=== PATIENT | male | born 1965 | race Caucasian/White ===

== ENCOUNTER 2017-01-25 12:08 | Observation (INO) | payer BC, OTHER ==
--- NOTE | 2017-01-25 12:47 | PDOC ---
History of Present Illness - General Chief Complaint: CVA/TIA Stated Complaint: CHEST PAIN, NAUSEA Time Seen by Provider: 01/25/17 12:29 History Source: Patient, Family - History of Present Illness Timing/Duration: reports: 1-3 hours Associated Symptoms: reports: nausea/vomiting, vision changes. denies: loss of consciousness, numbness in legs/feet, slurred speech Past History - Past Medical History Allergies/Adverse Reactions: Allergies Allergy/AdvReac Type Severity Reaction Status Date / Time No Known Allergies Allergy Verified 01/25/17 12:17 Home Medications: Ambulatory Orders Atorvastatin Ca [Lipitor] 20 mg PO HS 01/25/17 Diclofenac Sodium 100 mg PO BID 01/25/17 Empagliflozin [Jardiance] 10 mg PO DAILY 01/25/17 Ibuprofen [Motrin -] 600 mg PO TID PRN 01/25/17 Icosapent Ethyl [Vascepa] 1 gm PO BID 01/25/17 Insulin Glargine/Lixisenatide [Soliqua 100 Unit-33 Mcg/ml Pen] 15 units SQ AC Lisinopril/Hydrochlorothiazide [Lisinopril-Hctz 10-12.5 mg Tab] 1 each PO DAILY 01/25/17 Meloxicam [Mobic] 15 mg PO DAILY 01/25/17 Sitagliptin Phos/Metformin HCl [Janumet Xr 50-1,000 mg Tablet] 1 each PO BID Asthma: Yes Diabetes: Yes HTN: Yes Hypercholesterolemia: Yes Kidney Stones: Yes - Immunization History Immunization Up to Date: Yes - Suicide/Smoking/Psychosocial Hx Smoking Status: No Smoking History: Never smoked Number of Cigarettes Smoked Daily: 0 Hx Alcohol Use: Yes (SOCIAL) Drug/Substance Use Hx: No Substance Use Type: None Review of Systems - Review of Systems Constitutional: No: Chills, Fever HEENTM: Yes: Blurred Vision Respiratory: No: Cough, Shortness of Breath Cardiac (ROS): No: Chest Pain Neurological: Yes: Numbness. No: Headache, Weakness, Dizziness *Physical Exam - Vital Signs Last Vital Signs Temp Pulse Resp BP Pulse Ox 98.0 F 96 H 18 166/97 97 01/25/17 12:01/25/17 12:01/25/17 12:01/25/17 12:01/25/17 12:09 - Physical Exam General Appearance: Yes: Appropriately Dressed, Severe Distress HEENT: positive: Normal Voice Neck: positive: Supple Respiratory/Chest: positive: Lungs Clear, Normal Breath Sounds. negative: Respiratory Distress Cardiovascular: positive: Regular Rate, S1, S2 Gastrointestinal/Abdominal: positive: Soft. negative: Tender Extremity: positive: Normal Inspection Integumentary: positive: Dry, Warm Neurologic: positive: Fully Oriented, Alert, Normal Mood/Affect, Motor Strength 5/5, Sensory Deficit (to L side of face compared to R), Finger to Nose, Other ( possible convergence insufficiency to L eye (L eye deviates laterally when both eyes are focusing on near finger), no nystagmus, no drift). negative: Facial Droop, Disoriented NIH Stroke Scale - Last Known Well Date/Time & Onset Date Last Known Well: 01/25/17 Time Last Known Well: 09:00 - Initial Evaluation Level of consciousness: Alert Ask patient the month and their age: Answers both correctly Ask patient to open & close eyes; make fist and let go: Obeys both correctly Best gaze (horizontal eye movement): Normal Visual field testing: No visual field loss Facial paresis (Show teeth/raise eyebrows/close eyes tight): Normal symmetrical movement Motor Function: Left Arm: Normal Motor Function: Right Arm: Normal (extends arm 90 (or 45) degrees for 10 seconds without drift Motor Function: Left Leg: Normal (extends leg 30 degrees for 5 seconds without drift) Motor Function: Right Leg: Normal (extends leg 30 degrees for 5 seconds without drift) Limb Ataxia: No ataxia Sensory(Use pinprick test arms,legs,trunk,face/side to side): Mild to moderate decrease in sensation (to L face) Best language (Describe picture, name items, read sentences): No Aphasia Dysarthria (read several words): Normal articulation Extinction and Inattention: No abnormality - Total Score NIH Stroke Scale Score: 1 tPA Exclusion checklist 3-4.5h - Time Elapsed Date last known well: 01/25/17 Time last known well: 09:00 Elaspsed time: Day(s) and 10 Hour(s) and 25 Minutes - Thrombolytic Therapy Candidate Is patient eligible for thrombolytic therapy: Yes - Exclusion Criteria 3-4.5 hr SBP greater than 185 or DBP greater than 110mmHg despite tx: No Recent IC/spinal surgery,head trauma or stroke<3mos.: No Hx IC hemorrhage, IC neoplasm, AV malformation or aneurysm: No Active internal bleeding: No Blding diathesis(low plt ct, inc PTT,INR>1.7 or use of NOAC): No Symptoms suggest subarachnoid hemorrhage: No CT demonstrates multilobar infarct(>1/3 cerebral hemiphere): No Arterial puncture at noncompressible site in previous 7 days: No Blood glucose concentration less than 50mg/dL (2.7mmol/L): No - Relative Exclusion Criteria 3-4.5 hr Life expectancy <1 yr or severe co-morbid illness: No : No Patient/family refused: No Rapid improvement: No Stroke severity too mild: No Recent acute VT (w/in previous 3 months): No Seizure at onset with postictal residual neuro impairments: No Major surgery or serious trauma w/in previous 14 days: No Recent GI or hemorrhage (w/in previous 21 days): No - Add'l Relative Exclusion 3-4.5 hr Age > 80: No Hx of both diabetes AND prior ischemic stroke: No Taking an oral anticoagulant regardless of INR: No NIHSS >25: No Critical Care Time/MDM Note - Medical Decision Making Note: 01/25/17 12:42 51-year-old male history of NIDDM, HTN, HLD, here with headache with dizziness, nausea, vomiting. Patient reports being in usual state of health until 9 AM today when he began experiencing lightheadedness with vague headache and multiple episodes of nausea, vomiting. At some point felt that left side of face was numb. States his vision might be blurry bilaterally, but is unsure. No focal weakness or slurred speech. No chest pain or shortness of breath See exam R/o Stroke Alert activated Last known normal >3 hrs ago Mildly hypertensive and actively vomiting in ED Neuro exam remarkable for decreased sensation to left side of face with possible convergence insufficiency to L eye -CTH -labs -IVF -antiemetic -neuro c/s 01/25/17 12:57 Radiology called, CT head unremarkable. Neuro c/s pending 01/25/17 13:[address] Mejia of neurology. States unlikely stroke given stroke scale but recommends triple MRI study and admit 01/25/17 13:04 01/25/17 16:21 Labs and MRI head and neck all unremarkable. Patient continues to appear very uncomfortable and is currently c/o of nausea and dizziness, unclear if vertigo. Source of symptoms unclear at this time, possibly complex migraines versus peripheral vertigo. Glucose 268 w/ ketones in ua but no gap and not acidotic on blood gas so unlikely DKA. Will continue to manage symptoms and give trial of meclizine and reassess. If no improvement, will consider admitting to obs 01/25/17 18:26 Patient continues to complain of dizziness and nausea despite multiple attempts to manage symptoms. Case d/w Dr Garza and pt admitted 01/25/17 19:25 01/25/17 19:25 Discharge Disposition - Diagnosis Dizziness Nausea & vomiting Qualifiers: Vomiting type: unspecified Vomiting Intractability: intractable Qualified Code( s): R11.2 - Nausea with vomiting, unspecified - Discharge Dispostion Condition at time of disposition: Fair Last Admission D/C Date: 09/15/11 Admit: Yes - Referrals Referrals: Don Evans MD [Primary Care Provider] -
[2017-01-25] MEDS ORDERED: SODIUM CHLORIDE 1,000 ML IV STA ×2 (12:52→16:20)
[2017-01-25] MEDS ORDERED: METOCLOPRAMIDE HCL INJECTION 10 MG/2 ML VIAL IVPB ONE (12:52)
[2017-01-25 12:53] LABS: BASOPHIL 0.5 % (0-2.0); EOSINOPHIL 0.5 % (0-4.5); MCH 30.7 pg (25.7-33.7); MCHC 33.9 g/dl (32.0-35.9); MEAN CELL VOLUME 90.5 fl (80-96); MEAN PLT VOLUME 7.9 fl (7.5-11.1); NEUTROPHILS 65.3 % (42.8-82.8); PLATELET COUNT 183 K/MM3 (134-434); RDW 13.1 % (11.9-15.9); WHITE BLOOD COUNT 8.6 K/mm3 (4.0-10.0)
[2017-01-25] MEDS ORDERED: METOCLOPRAMIDE HCL INJECTION 10 MG/2 ML VIAL ONE (12:57)
[2017-01-25 13:06] LABS: ANION GAP 13 (8-16); BILIRUBIN,TOTAL 0.6 mg/dL (0.2-1.0); CALCIUM 9.9 mg/dL (8.5-10.1); CO2 23 mmol/L (21-32); CREATININE 0.8 mg/dL (0.7-1.3); GLUCOSE,RANDOM 268 mg/dL (74-106); SGPT/ALT 88 U/L (12-78)
[2017-01-25 13:08] LABS: ALK PHOS 114 U/L (45-117); TROPONIN I 0.05 ng/ml (0.00-0.05)
[2017-01-25 13:09] LABS: CPK 190 IU/L (39-308); SGOT/AST 39 U/L (15-37)
[2017-01-25 13:20] LABS: INR 0.88 (0.82-1.09); PROTHROMBIN TIME (PATIENT) 9.7 SEC (9.98-11.88)
[2017-01-25 13:28] LABS: VENOUS BLOOD GAS HCO3 22.5 meq/L (19-25); VENOUS PH 7.44 (7.32-7.42)
[2017-01-25 15:30] LABS: URINE APPEARANCE CLEAR; URINE BILIRUBIN NEGATIVE (NEGATIVE); URINE BLOOD 2+ (NEGATIVE); URINE COLOR STRAW; URINE GLUCOSE (UA) 3+ (NEGATIVE); URINE KETONE 1+ (NEGATIVE); URINE LEUK ESTERASE NEGATIVE (NEGATIVE); URINE NITRITE NEGATIVE (NEGATIVE); URINE UROBILINOGEN NEGATIVE mg/dL (0.2-1.0)
[2017-01-25 15:41] LABS: URINE PROTEIN 2+ (NEGATIVE)
[2017-01-25 15:42] LABS: URINE RBC 3 /hpf (0-3); URINE WBC 1 /hpf (3-5)
[2017-01-25] MEDS ORDERED: ONDANSETRON 4 MG/2 ML VIAL IVPUSH ONE (16:20)
[2017-01-25] MEDS ORDERED: MECLIZINE HCL 25 MG TABLET (FP) PO ONE (16:20)
[2017-01-25] MEDS ORDERED: MECLIZINE HCL 25 MG TABLET (FP) ONE (16:30)
[2017-01-25] MEDS ORDERED: ONDANSETRON 4 MG/2 ML VIAL ONE (16:31)
[2017-01-25 17:57] LABS: URINE MARIJUANA THC NEGATIVE ng/ml (CUTOFF=50)
[2017-01-25] MEDS ORDERED: diazePAM CARPU-JECT 10 MG/2 ML DISP.SYRIN IVPUSH ONE (18:22)
[2017-01-25] MEDS ORDERED: diazePAM 5 MG TABLET PO ONE (18:31)
[2017-01-25] MEDS ORDERED: diazePAM 5 MG TABLET ONE (18:32)
[2017-01-25] MEDS ORDERED: ATORVASTATIN CA 40 MG TABLET (FP) ONE (22:09)
[2017-01-25] MEDS ORDERED: HEPARIN NA (PORCINE) 5,000 UNITS/ML 1ML VIAL ONE (22:09)
[2017-01-25] MEDS: HEPARIN NA (PORCINE) 5,000 UNITS/ML 1ML VIAL SQ SCH (22:27)
[2017-01-25] MEDS: ATORVASTATIN CA 20 MG TABLET (FP) PO SCH (22:28)
[2017-01-25 23:03] LABS: MCH 31.2 pg (25.7-33.7); MCHC 34.1 g/dl (32.0-35.9); MEAN CELL VOLUME 91.5 fl (80-96); MEAN PLT VOLUME 7.8 fl (7.5-11.1); PLATELET COUNT 159 K/MM3 (134-434); RDW 13.1 % (11.9-15.9); WHITE BLOOD COUNT 7.9 K/mm3 (4.0-10.0)
[2017-01-25 23:31] LABS: ALBUMIN 3.5 g/dl (3.4-5.0); ANION GAP 13 (8-16); BILIRUBIN,TOTAL 0.5 mg/dL (0.2-1.0); CALCIUM 8.6 mg/dL (8.5-10.1); CO2 23 mmol/L (21-32); CREATININE 0.8 mg/dL (0.7-1.3); GLUCOSE,RANDOM 186 mg/dL (74-106); SGOT/AST 37 U/L (15-37); SGPT/ALT 80 U/L (12-78)
[2017-01-25 23:33] LABS: ALK PHOS 87 U/L (45-117); CPK 106 IU/L (39-308); TROPONIN I 0.11 ng/ml (0.00-0.05)
[2017-01-26 07:22] LABS: BASOPHIL 0.3 % (0-2.0); EOSINOPHIL 0.5 % (0-4.5); MCH 31.1 pg (25.7-33.7); MCHC 33.8 g/dl (32.0-35.9); MEAN PLT VOLUME 7.7 fl (7.5-11.1); NEUTROPHILS 75.4 % (42.8-82.8); PLATELET COUNT 159 K/MM3 (134-434); RDW 13.1 % (11.9-15.9); WHITE BLOOD COUNT 7.3 K/mm3 (4.0-10.0)
[2017-01-26 07:57] LABS: ALBUMIN 3.4 g/dl (3.4-5.0); ANION GAP 10 (8-16); CALCIUM 8.6 mg/dL (8.5-10.1); CHOLESTEROL 179 mg/dL (50-200); CO2 24 mmol/L (21-32); GLUCOSE,RANDOM 136 mg/dL (74-106)
[2017-01-26 08:01] LABS: ALK PHOS 78 U/L (45-117); BILIRUBIN,TOTAL 0.6 mg/dL (0.2-1.0); CPK 81 IU/L (39-308); CREATININE 0.8 mg/dL (0.7-1.3); SGOT/AST 32 U/L (15-37); SGPT/ALT 76 U/L (12-78); TOT PROT 6.9 g/dl (6.4-8.2); TROPONIN I 0.07 ng/ml (0.00-0.05)
--- NOTE | 2017-01-26 08:51 | CON.NEURO ---
Consult - History of Present Illness History of Present Illness: 51-year-old male history of NIDDM, HTN, HLD, here with headache with dizziness, nausea, vomiting. Patient reports being in usual state of health until 9 AM on 01/25/17 when he began experiencing lightheadedness with vague headache and multiple episodes of nausea, vomiting. At some point felt that left side of face was numb. States his vision might be blurry bilaterally, but is unsure. No focal weakness or slurred speech. No chest pain or shortness of breath. Called neurology apx 1PM --was out of TPA window. CT HD (-). MRI BRAIN (-) no acute infarct. MRA NL. denies TIM now, feels numbness right leg, + dizziness - Alcohol/Substance Use Hx Alcohol Use: Yes (SOCIAL) - Smoking History Smoking history: Never smoked Aproximately how many cigarettes per day: 0 Home Medications - Allergies Allergies/Adverse Reactions: Allergies Allergy/AdvReac Type Severity Reaction Status Date / Time No Known Allergies Allergy Verified 01/25/17 12:17 - Home Medications Home Medications: Ambulatory Orders Atorvastatin Ca [Lipitor] 20 mg PO HS 01/25/17 Diclofenac Sodium 100 mg PO BID 01/25/17 Empagliflozin [Jardiance] 10 mg PO DAILY 01/25/17 Ibuprofen [Motrin -] 600 mg PO TID PRN 01/25/17 Icosapent Ethyl [Vascepa] 1 gm PO BID 01/25/17 Insulin Glargine/Lixisenatide [Soliqua 100 Unit-33 Mcg/ml Pen] 15 units SQ AC Lisinopril/Hydrochlorothiazide [Lisinopril-Hctz 10-12.5 mg Tab] 1 each PO DAILY 01/25/17 Meloxicam [Mobic] 15 mg PO DAILY 01/25/17 Sitagliptin Phos/Metformin HCl [Janumet Xr 50-1,000 mg Tablet] 1 each PO BID Physical Exam-Neuro Vital Signs: Vital Signs Temperature 97.9 F 01/26/17 07:03 Pulse Rate 78 01/26/17 07:03 Respiratory Rate 18 01/26/17 07:03 Blood Pressure 138/75 01/26/17 07:03 O2 Sat by Pulse Oximetry (%) 97 01/26/17 07:03 Constitutional: Yes: Well Nourished, No Distress Labs: CBC, BMP 01/26/17 06:20 01/26/17 06:20 INR, PTT INR 0.88 (0.82-1.09) 01/25/17 12:40 - Neuro Exam Level Of Consciousness: Yes: Alert, Oriented to Person (EOMI, no facial, VFF, motor 5/5, no drift, sesnory intact) NIH Stroke Scale - Last Known Well Date/Time & Onset Date Last Known Well: 01/25/17 - Initial Evaluation Level of consciousness: Alert Ask patient the month and their age: Answers both correctly Ask patient to open & close eyes; make fist and let go: Obeys both correctly Best gaze (horizontal eye movement): Normal Visual field testing: No visual field loss Facial paresis (Show teeth/raise eyebrows/close eyes tight): Normal symmetrical movement Motor Function: Left Arm: Normal Motor Function: Right Arm: Normal (extends arm 90 (or 45) degrees for 10 seconds without drift Motor Function: Left Leg: Normal (extends leg 30 degrees for 5 seconds without drift) Motor Function: Right Leg: Normal (extends leg 30 degrees for 5 seconds without drift) Limb Ataxia: No ataxia Sensory(Use pinprick test arms,legs,trunk,face/side to side): Normal Best language (Describe picture, name items, read sentences): No Aphasia Dysarthria (read several words): Normal articulation Extinction and Inattention: No abnormality - Total Score NIH Stroke Scale Score: 0 Imaging - Results Cat Scan: Report Reviewed, Image Reviewed MRI: Report Reviewed, Image Reviewed Problem List - Problems (1) Headache Code(s): R51 - HEADACHE (2) Vertigo Code(s): R42 - DIZZINESS AND GIDDINESS (3) Hypertension Code(s): I10 - ESSENTIAL (PRIMARY) HYPERTENSION Assessment/Plan 51-year-old male history of NIDDM, HTN, HLD, here with headache with dizziness, nausea, vomiting. Patient reports being in usual state of health until 9 AM on 01/25/17 when he began experiencing lightheadedness with vague headache and multiple episodes of nausea, vomiting. suspect bout of peripheral vertigo , BPV vs viral mediated vs Diabetic ; no contral findings on exam, doubt this was a TIA MRI MRA BRAIN (-), check DOPPLER BP control, meclizine, hydration needs DM control, a1c 10. 1 ASA ok for now Dr Mejia
[2017-01-26] MEDS: HEPARIN NA (PORCINE) 5,000 UNITS/ML 1ML VIAL SQ SCH ×2 (10:42→21:44)
--- NOTE | 2017-01-26 10:43 | EKG ---
Test Reason : Blood Pressure : / mmHG Vent. Rate : 084 BPM Atrial Rate : 084 BPM P-R Int : 140 ms QRS Dur : 096 ms QT Int : 390 ms P-R-T Axes : 043 042 020 degrees QTc Int : 460 ms NORMAL SINUS RHYTHM NORMAL ECG WHEN COMPARED WITH ECG OF 25-JAN-2017 12:17, T WAVE AMPLITUDE HAS INCREASED IN ANTERIOR LEADS Confirmed by ANDREIA RODRIGUES MD ([id number]) on 01/26/2017 10:43:04 AM Referred By: DAMIAN ALEXANDER Confirmed By:ANDREIA RODRIGUES MD
[2017-01-26] MEDS: ACETAMINOPHEN 325 MG TABLET (FP) PO PRN (11:23)
[2017-01-26] MEDS ORDERED: MECLIZINE HCL 25 MG TABLET (FP) PO PRN (13:32)
--- NOTE | 2017-01-26 13:33 | HP ---
Admitting History and Physical - Primary Care Physician PCP: Mario Garza - Admission Chief Complaint: diziness unsteady gait History of Present Illness: 51-year-old male history of NIDDM, HTN, HLD, here with headache with dizziness, nausea, vomiting. Patient reports being in usual state of health until 9 AM on 01/25/17 when he began experiencing lightheadedness with vague headache and multiple episodes of nausea, vomiting. At some point felt that left side of face was numb. States his vision might be blurry bilaterally, but is unsure. No focal weakness or slurred speech. No chest pain or shortness of breath. Called neurology apx 1PM --was out of TPA window. CT HD (-). MRI BRAIN (-) no acute infarct. MRA NL. per patient he was fine yesterday in morning then got bad headache and felt unsteady on his feet in ER he got CT scan , MRI and MRA which is all normal he stil is unsteady on his feet got meclizine echo normal History Source: Patient, Medical Record - Past Medical History Cardiovascular: Yes: HTN, Hyperlipdemia Endocrine: Yes: Diabetes Mellitus - Smoking History Smoking history: Never smoked Have you smoked in the past 12 months: No Aproximately how many cigarettes per day: 0 - Alcohol/Substance Use Hx Alcohol Use: Yes (SOCIAL) Home Medications - Allergies Allergies/Adverse Reactions: Allergies Allergy/AdvReac Type Severity Reaction Status Date / Time No Known Allergies Allergy Verified 01/25/17 12:17 - Home Medications Home Medications: Ambulatory Orders Atorvastatin Ca [Lipitor] 20 mg PO HS 01/25/17 Diclofenac Sodium 100 mg PO BID 01/25/17 Empagliflozin [Jardiance] 10 mg PO DAILY 01/25/17 Ibuprofen [Motrin -] 600 mg PO TID PRN 01/25/17 Icosapent Ethyl [Vascepa] 1 gm PO BID 01/25/17 Insulin Glargine/Lixisenatide [Soliqua 100 Unit-33 Mcg/ml Pen] 15 units SQ AC Lisinopril/Hydrochlorothiazide [Lisinopril-Hctz 10-12.5 mg Tab] 1 each PO DAILY 01/25/17 Meloxicam [Mobic] 15 mg PO DAILY 01/25/17 Sitagliptin Phos/Metformin HCl [Janumet Xr 50-1,000 mg Tablet] 1 each PO BID Review of Systems - Review of Systems Constitutional: reports: Other (dizziness and unsteady on his feet on his way to bathroom) Physical Examination Vital Signs: Vital Signs Temperature 97.8 F 01/26/17 13:32 Pulse Rate 92 H 01/26/17 13:32 Respiratory Rate 18 01/26/17 13:32 Blood Pressure 127/70 01/26/17 13:32 O2 Sat by Pulse Oximetry (%) 97 01/26/17 11:27 Constitutional: Yes: Calm Neck: Yes: Trachea Midline Cardiovascular: Yes: Regular Rate and Rhythm, S1, S2 Respiratory: Yes: CTA Bilaterally Gastrointestinal: Yes: Normal Bowel Sounds, Soft Edema: No Neurological: Yes: Alert, Oriented, Other (motor strength amd sensory intact) Labs: CBC, BMP 01/26/17 06:20 01/26/17 06:20 Imaging - Results Cat Scan: Report Reviewed MRI: Report Reviewed Problem List - Problems (1) Dizziness Assessment/Plan: cardio eval pending trial of meclizine PT neuro work up so far negative will get ENT to see patient as well possible middle ear eitology? april need STR dvt px Code(s): R42 - DIZZINESS AND GIDDINESS (2) Diabetes Assessment/Plan: endocrine eval Bgm monitiring hga1c 10- uncontrolled levemir 15 units hs hold metformin for 24 hrs given had contrast in MRI januvia 100mg daily Code(s): E11.9 - TYPE 2 DIABETES MELLITUS WITHOUT COMPLICATIONS Qualifiers: Diabetes mellitus type: type 2
[2017-01-26] MEDS ORDERED: ONDANSETRON 4 MG/2 ML VIAL IVPUSH PRN (14:09)
--- NOTE | 2017-01-26 15:44 | CON.CARD ---
Consult Consult Specialty:: Cardiology Referred by:: Dr. Garza Reason for Consultation:: Elevated troponin. - History of Present Illness Chief Complaint: Chest pain and headache. History of Present Illness: 51-year-old man with a PMHx of HTN, NIDDM, hyperlipidemia admitted 01/25/2017 with severe headache. The patient developed headache with dizziness, nausea, vomiting on the day of admission. Seen by Neurology, CT head, MRI and MRA were negative. His headache improved. The patient had episode of left sided chest pain with associated SOB on the day of admission which lasted for 20-30 minutes. He has no recurrent chest pain since admission. ECG showed anterior peak T waves. Troponin is mildly elevated: 0.05->0.11->0.07. Echocardiogram 01/26/2017 showed normal LV function without segmental wall motion abnormalities. 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) Cardio/Vascular: Yes: HTN, Hyperlipdemia Endocrine: Yes: Diabetes Mellitus - Alcohol/Substance Use Hx Alcohol Use: Yes (SOCIAL) - Smoking History Smoking history: Never smoked Have you smoked in the past 12 months: No Aproximately how many cigarettes per day: 0 Home Medications - Allergies Allergies/Adverse Reactions: Allergies Allergy/AdvReac Type Severity Reaction Status Date / Time No Known Allergies Allergy Verified 01/25/17 12:17 - Home Medications Home Medications: Ambulatory Orders Atorvastatin Ca [Lipitor] 20 mg PO HS 01/25/17 Diclofenac Sodium 100 mg PO BID 01/25/17 Empagliflozin [Jardiance] 10 mg PO DAILY 01/25/17 Ibuprofen [Motrin -] 600 mg PO TID PRN 01/25/17 Icosapent Ethyl [Vascepa] 1 gm PO BID 01/25/17 Insulin Glargine/Lixisenatide [Soliqua 100 Unit-33 Mcg/ml Pen] 15 units SQ AC Lisinopril/Hydrochlorothiazide [Lisinopril-Hctz 10-12.5 mg Tab] 1 each PO DAILY 01/25/17 Meloxicam [Mobic] 15 mg PO DAILY 01/25/17 Sitagliptin Phos/Metformin HCl [Janumet Xr 50-1,000 mg Tablet] 1 each PO BID Review of Systems - Review of Systems Constitutional: reports: No Symptoms Eyes: reports: Other HENT: reports: No Symptoms Neck: reports: No Symptoms Cardiovascular: reports: Chest Pain Respiratory: reports: SOB Gastrointestinal: reports: No Symptoms Genitourinary: reports: No Symptoms Breasts: reports: No Symptoms Reported Musculoskeletal: reports: No Symptoms Neurological: reports: Headache Vital Signs: Vital Signs Temperature 97.8 F 01/26/17 13:32 Pulse Rate 92 H 01/26/17 13:32 Respiratory Rate 18 01/26/17 13:32 Blood Pressure 127/70 01/26/17 13:32 O2 Sat by Pulse Oximetry (%) 97 01/26/17 11:27 Constitutional: Yes: Well Nourished, No Distress, Calm Eyes: Yes: Conjunctiva Clear, EOM Intact, PERRL HENT: Yes: Atraumatic, Normocephalic Neck: Yes: Supple, Trachea Midline Respiratory: Yes: Regular, CTA Bilaterally Gastrointestinal: Yes: Normal Bowel Sounds, Soft Cardiovascular: Yes: Regular Rate and Rhythm JVD: No Carotid Bruit: No Heart Sounds: Yes: S1, S2 Extremities: Yes: WNL Edema: No Peripheral Pulses WNL: Yes - Other Data Labs, Other Data: CBC, BMP 01/26/17 06:20 01/26/17 06:20 INR, PTT INR 0.88 (0.82-1.09) 01/25/17 12:40 Troponin, BNP 01/25/17 01/26/17 22:50 06:20 Troponin I 0.11 H D 0.07 H D Troponin, BNP 01/25/17 01/26/17 22:50 06:20 Troponin I 0.11 H D 0.07 H D Sinus rhythm, peak T waves anterior leads. Echo: Report Reviewed (Normal LV and RV.) Ejection Fraction %: LVEF > or = 40 % Assessment/Plan 51-year-old man with a PMHx of HTN, NIDDM, hyperlipidemia admitted 01/25/2017 with severe headache. Seen by Neurology, CT head, MRI and MRA were negative. His headache improved. He had an episode of left sided chest pain with associated SOB. ECG showed anterior peak T waves. Troponin is mildly elevated: 0.05->0.11->0.07. Echocardiogram 01/26/2017 showed normal LV function without segmental wall motion abnormalities. Chest pain with mildly elevated troponin. He has been stable without recurrent chest pain. The pattern of troponin elevated dose not suggest acute coronary syndrome. But he has multiple risk factors of CAD. Therefore, Persantine nulcear stress test recommended for risk stratification. Start aspirin 81 mg daily and Metoprolol succinate 25 mg daily. Continue atorvastatin.
[2017-01-26] MEDS ORDERED: INSULIN (NOVOLOG) ASPART 100 UNITS/ML 10ML VIAL ONE ×2 (16:33→18:41)
[2017-01-26] MEDS ORDERED: PT OWN MED DRAWER 7, Y5N ONE (16:33)
[2017-01-26] MEDS: METOPROLOL SUCCINATE 25 MG TAB.SR.24H (FP) PO SCH (16:40)
[2017-01-26] MEDS: INSULIN SLIDING SCALE (NOVOLOG) 1 VIAL SQ SCH ×2 (16:40→21:46)
[2017-01-26] MEDS: ATORVASTATIN CA 20 MG TABLET (FP) PO SCH (21:44)
[2017-01-26] MEDS ORDERED: INSULIN DETEMIR 100 UNITS/ML MDV SQ SCH (22:00)
[2017-01-27] MEDS: INSULIN SLIDING SCALE (NOVOLOG) 1 VIAL SQ SCH ×3 (06:23→16:52)
--- NOTE | 2017-01-27 08:26 | CONSULT ---
Consult Consult Specialty:: endocrine Referred by:: dr.saba perkins Reason for Consultation:: diabetes mellitus - History of Present Illness Chief Complaint: high blood sugar numbness face and hand History of Present Illness: 51-year-old male history of NIDDM, HTN, HLD, here with headache with dizziness, nausea, vomiting. Patient reports being in usual state of health until 9 AM on 01/25/17 when he began experiencing lightheadedness with vague headache and multiple episodes of nausea, vomiting. 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) Cardio/Vascular: Yes: HTN, Hyperlipdemia Endocrine: Yes: Diabetes Mellitus - Alcohol/Substance Use Hx Alcohol Use: Yes (SOCIAL) - Smoking History Smoking history: Never smoked Have you smoked in the past 12 months: No Aproximately how many cigarettes per day: 0 Home Medications - Allergies Allergies/Adverse Reactions: Allergies Allergy/AdvReac Type Severity Reaction Status Date / Time No Known Allergies Allergy Verified 01/25/17 12:17 - Home Medications Home Medications: Ambulatory Orders Atorvastatin Ca [Lipitor] 20 mg PO HS 01/25/17 Diclofenac Sodium 100 mg PO BID 01/25/17 Empagliflozin [Jardiance] 10 mg PO DAILY 01/25/17 Ibuprofen [Motrin -] 600 mg PO TID PRN 01/25/17 Icosapent Ethyl [Vascepa] 1 gm PO BID 01/25/17 Insulin Glargine/Lixisenatide [Soliqua 100 Unit-33 Mcg/ml Pen] 15 units SQ AC Lisinopril/Hydrochlorothiazide [Lisinopril-Hctz 10-12.5 mg Tab] 1 each PO DAILY 01/25/17 Meloxicam [Mobic] 15 mg PO DAILY 01/25/17 Sitagliptin Phos/Metformin HCl [Janumet Xr 50-1,000 mg Tablet] 1 each PO BID Review of Systems - Review of Systems Constitutional: reports: Lethargy, Loss of Appetite, Weakness Eyes: reports: Blurred Vision HENT: reports: No Symptoms Neck: reports: No Symptoms Cardiovascular: reports: Shortness of Breath Respiratory: reports: Exercise Intolerance, SOB on Exertion Gastrointestinal: reports: Constipation Genitourinary: reports: No Symptoms Musculoskeletal: reports: Extremity Pain, Muscle Pain, Muscle Cramps Neurological: reports: Numbness, Unsteady Gait, Weakness Endocrine: reports: Unexplained Weight Gain Physical Exam Vital Signs: Vital Signs Temperature 98.4 F 01/27/17 06:00 Pulse Rate 73 01/27/17 06:00 Respiratory Rate 20 01/27/17 06:00 Blood Pressure 136/88 01/27/17 06:00 O2 Sat by Pulse Oximetry (%) 97 01/26/17 20:20 Constitutional: Yes: Anxious Eyes: Yes: EOM Intact HENT: Yes: Normocephalic Neck: Yes: Trachea Midline Cardiovascular: Yes: Regular Rate and Rhythm Respiratory: Yes: CTA Bilaterally Gastrointestinal: Yes: Normal Bowel Sounds ...Rectal Exam: Yes: Deferred Renal/: Yes: WNL Breast(s): Yes: WNL Musculoskeletal: Yes: Muscle Pain, Muscle Weakness Edema: No Neurological: Yes: Alert, Oriented, Numbness, Weakness Psychiatric: Yes: Alert Labs: CBC, BMP 01/26/17 06:20 01/26/17 06:20 Problem List - Problems (1) Type 2 diabetes mellitus with diabetic neuropathic arthropathy Code(s): E11.610 - TYPE 2 DIABETES MELLITUS W DIABETIC NEUROPATHIC ARTHROPATHY Qualifiers: Diabetes mellitus group home insulin use: with manager long term care use Qualified Code(s): E11.618 - Type 2 diabetes mellitus with other diabetic arthropathy; Z79.4 - manager long term care (current) use of insulin Assessment/Plan Current Active Problems Diabetes (Acute) Dizziness (Acute) Hypertension (Acute) Nausea & vomiting (Acute) Vertigo (Acute) diabetes neuropathy hyperlipidemia chest pain /angina Laboratory Results - last 24 hr 01/25/17 12:37 POC Glucometer [id number] Laboratory Tests 01/26/17 01/26/17 01/26/17 06:20 06:20 06:20 WBC 7.3 Hgb 15.0 Hct 44.5 MCV 92.0 MCH 31.1 MCHC 33.8 RDW 13.1 Plt Count 159 MPV 7.7 Sodium 140 Potassium 4.0 Chloride 106 Carbon Dioxide 24 Anion Gap 10 BUN 22 H Creatinine 0.8 Creat Clearance w eGFR > 60 Hemoglobin A1c % 10.1 H D Triglycerides 180 H D Cholesterol 179 D Total LDL Cholesterol 90 D HDL Cholesterol 62 H D plan: bgm qid novolog scale doses levemir 15 units am daily lipitor 20 mg daily ecotrin 81 mg daily
[2017-01-27] MEDS ORDERED: DIPYRIDAMOLE STRESS TEST 50 MG in DEXTROSE 5%-WATER - 40 ML IVPB ONE (10:00)
[2017-01-27] MEDS ORDERED: ASPIRIN COATED 81 MG TABLET.EC PO SCH (10:00)
[2017-01-27] MEDS: HEPARIN NA (PORCINE) 5,000 UNITS/ML 1ML VIAL SQ SCH (12:03)
[2017-01-27] MEDS: METOPROLOL SUCCINATE 25 MG TAB.SR.24H (FP) PO SCH (12:03)
[2017-01-27] MEDS ORDERED: HEMOQUE TEST 1 EACH EACH ONE (12:08)
[2017-01-27] MEDS: ACETAMINOPHEN 325 MG TABLET (FP) PO PRN ×2 (12:11→17:10)
--- NOTE | 2017-01-27 13:02 | PN ---
Progress Note, Physician Chief Complaint: patient seen and examined today he feels better double vision has resolved and less dizzy while in bed however he has not ambulated PT to see him for gait - Current Medication List Current Medications: Active Medications Acetaminophen (Tylenol -) 650 mg PO Q4H PRN PRN Reason: FEVER OR PAIN Last Admin: 01/27/17 12:11 Dose: 650 mg Aspirin (Ecotrin -) 81 mg PO DAILY [facility] Last Admin: 01/27/17 12:03 Dose: 81 mg Atorvastatin Calcium (Lipitor -) 20 mg PO HS [facility] Last Admin: 01/26/17 21:44 Dose: 20 mg Heparin Sodium (Porcine) (Heparin -) 5,000 unit SQ BID [facility] Last Admin: 01/27/17 12:03 Dose: 5,000 unit Insulin Aspart (Novolog Vial Sliding Scale -) 1 vial SQ ACHS [facility] PRN Reason: Protocol Last Admin: 01/27/17 12:12 Dose: 2 unit Insulin Detemir (Levemir Vial) 15 units SQ AM MARTI Meclizine HCl (Antivert -) 25 mg PO BID PRN PRN Reason: VERTIGO Last Admin: 01/26/17 16:41 Dose: 25 mg Metoprolol Succinate (Toprol Xl -) 25 mg PO DAILY [facility] Last Admin: 01/27/17 12:03 Dose: 25 mg Ondansetron HCl (Zofran Injection) 4 mg IVPUSH Q6H PRN PRN Reason: NAUSEA AND/OR VOMITING - Objective Vital Signs: Vital Signs Temperature 98.4 F 01/27/17 06:00 Pulse Rate 73 01/27/17 06:00 Respiratory Rate 20 01/27/17 06:00 Blood Pressure 136/88 01/27/17 06:00 O2 Sat by Pulse Oximetry (%) 97 01/26/17 20:20 Constitutional: Yes: Calm Neck: Yes: Trachea Midline Cardiovascular: Yes: Regular Rate and Rhythm, S1, S2 Respiratory: Yes: CTA Bilaterally Gastrointestinal: Yes: Normal Bowel Sounds, Soft Edema: No Neurological: Yes: Alert, Oriented Labs: INR, PTT INR 0.88 (0.82-1.09) 01/25/17 12:40 Problem List - Problems (1) Dizziness Assessment/Plan: trial of meclizine PT eval pending neuro work up so far negative Code(s): R42 - DIZZINESS AND GIDDINESS (2) Diabetes Assessment/Plan: endocrine eval noted Bgm monitiring hga1c 10- uncontrolled levemir 15 units hs hold metformin for 24 hrs given had contrast in MRI januvia 100mg daily Code(s): E11.9 - TYPE 2 DIABETES MELLITUS WITHOUT COMPLICATIONS Qualifiers: Diabetes mellitus type: type 2 (3) Elevated troponin Assessment/Plan: stress test done today report pending on asa,statin and BB Code(s): R74.8 - ABNORMAL LEVELS OF OTHER SERUM ENZYMES Assessment/Plan PT eval to determine gait stability to decide if patient can go home vs str stress test report pending
--- NOTE | 2017-01-27 14:45 | PN ---
Progress Note, Physician Chief Complaint: Patient appears comfortable. Headache improved. No recurrent chest pain. Tele shows sinus rhythm without arrhythmia. History of Present Illness: 51-year-old man with a PMHx of HTN, NIDDM, hyperlipidemia admitted 01/25/2017 with severe headache. He had one episode of left sided chest pain with associated SOB on the day of admission which lasted for 20-30 minutes. ECG showed anterior peak T waves. Troponin is mildly elevated: 0.05->0.11->0.07. Echocardiogram 01/26/2017 showed normal LV function without segmental wall motion abnormalities. Persantine nuclear stress test today showed large and severe stress induced ischemia in the inferolateral and inferoseptal wall. Small and mild stress induced ischemia in the apex. Inferolateral hypokinesis with preserved LV systolic function. LVEF = 55%. Patient will be transferred to [facility] for cardiac cath. - Current Medication List Current Medications: Active Medications Acetaminophen (Tylenol -) 650 mg PO Q4H PRN PRN Reason: FEVER OR PAIN Last Admin: 01/27/17 12:11 Dose: 650 mg Aspirin (Ecotrin -) 81 mg PO DAILY ON LICENSE OF [facility] Last Admin: 01/27/17 12:03 Dose: 81 mg Atorvastatin Calcium (Lipitor -) 20 mg PO HS ON LICENSE OF [facility] Last Admin: 01/26/17 21:44 Dose: 20 mg Heparin Sodium (Porcine) (Heparin -) 5,000 unit SQ BID ON [facility] OF [facility] Last Admin: 01/27/17 12:03 Dose: 5,000 unit Insulin Aspart (Novolog Vial Sliding Scale -) 1 vial SQ ACHS ON LICENSE OF [facility] PRN Reason: Protocol Last Admin: 01/27/17 12:12 Dose: 2 unit Insulin Detemir (Levemir Vial) 15 units SQ AM ON LICENSE OF [facility] Meclizine HCl (Antivert -) 25 mg PO BID PRN PRN Reason: VERTIGO Last Admin: 01/26/17 16:41 Dose: 25 mg Metoprolol Succinate (Toprol Xl -) 25 mg PO DAILY ON LICENSE OF [facility] Last Admin: 01/27/17 12:03 Dose: 25 mg Ondansetron HCl (Zofran Injection) 4 mg IVPUSH Q6H PRN PRN Reason: NAUSEA AND/OR VOMITING - Objective Vital Signs: Vital Signs Temperature 98 F 01/27/17 10:00 Pulse Rate 78 01/27/17 14:00 Respiratory Rate 20 01/27/17 14:00 Blood Pressure 160/91 01/27/17 14:00 O2 Sat by Pulse Oximetry (%) 97 01/26/17 20:20 Constitutional: Yes: Well Nourished, No Distress, Calm Eyes: Yes: Conjunctiva Clear, EOM Intact HENT: Yes: WNL, Atraumatic, Normocephalic Neck: Yes: Supple, Trachea Midline Cardiovascular: Yes: Regular Rate and Rhythm Respiratory: Yes: Regular, CTA Bilaterally Gastrointestinal: Yes: WNL, Normal Bowel Sounds, Soft ...Rectal Exam: Yes: Deferred Extremities: Yes: WNL Edema: No Peripheral Pulses WNL: Yes Integumentary: Yes: WNL Neurological: Yes: WNL, Alert, Oriented Labs: INR, PTT INR 0.88 (0.82-1.09) 01/25/17 12:40 Assessment/Plan 51-year-old man with a PMHx of HTN, NIDDM, hyperlipidemia admitted 01/25/2017 with severe headache. Seen by Neurology, CT head, MRI and MRA were negative. His headache improved. He had an episode of left sided chest pain with associated SOB. ECG showed anterior peak T waves. Troponin is mildly elevated: 0.05->0.11->0.07. Echocardiogram 01/26/2017 showed normal LV function without segmental wall motion abnormalities. Persantine nuclear stress test today showed large and severe stress induced ischemia in the inferolateral and inferoseptal wall. Small and mild stress induced ischemia in the apex. Inferolateral hypokinesis with preserved LV systolic function. LVEF = 55%. Patient will be transferred to [facility] for cardiac cath. Continue aspirin 81 mg daily and atorvastatin. Increase Metoprolol succinate to 50 mg daily for BP and HR control. Will start Lovenox in case of recurrent chest pain.
--- NOTE | 2017-01-27 16:20 | DS ---
Physical Examination Vital Signs: Vital Signs Temperature 97.5 F L 01/27/17 14:40 Pulse Rate 84 01/27/17 14:40 Respiratory Rate 26 H 01/27/17 14:40 Blood Pressure 160/91 01/27/17 14:40 O2 Sat by Pulse Oximetry (%) 97 01/26/17 20:20 Constitutional: Yes: Calm Neck: Yes: Trachea Midline Cardiovascular: Yes: Regular Rate and Rhythm, S1, S2 Respiratory: Yes: CTA Bilaterally Gastrointestinal: Yes: Normal Bowel Sounds, Soft Edema: No Psychiatric: Yes: Alert, Oriented Discharge Summary Reason For Visit: DIZZINESS,NAUSEA,VOMITING Current Active Problems Diabetes (Acute) Dizziness (Acute) Elevated troponin (Acute) Hypertension (Acute) Nausea & vomiting (Acute) Type 2 diabetes mellitus with diabetic neuropathic arthropathy (Acute) Vertigo (Acute) Hospital Course: 51-year-old man with a PMHx of HTN, NIDDM, hyperlipidemia admitted 01/25/2017 with severe headache. He had one episode of left sided chest pain with associated SOB on the day of admission which lasted for 20-30 minutes. ECG showed anterior peak T waves. Troponin is mildly elevated: 0.05->0.11->0.07. Echocardiogram 01/26/2017 showed normal LV function without segmental wall motion abnormalities. Persantine nuclear stress test today showed large and severe stress induced ischemia in the inferolateral and inferoseptal wall. Small and mild stress induced ischemia in the apex. Inferolateral hypokinesis with preserved LV systolic function. LVEF = 55%. dizziness : MRI/MRA brain negative, Patient will be transferred to [facility] for cardiac cath. Condition: Fair - Instructions Referrals: Don Evans MD [Primary Care Provider] - Disposition: TRANSFER ACUTE CARE/OTHER HOSP - Home Medications Comprehensive Discharge Medication List: Ambulatory Orders Atorvastatin Ca [Lipitor] 20 mg PO HS 01/25/17 Empagliflozin [Jardiance] 10 mg PO DAILY 01/25/17 Icosapent Ethyl [Vascepa] 1 gm PO BID 01/25/17 Insulin Glargine/Lixisenatide [[place] 100 Unit-33 Mcg/ml Pen] 15 units SQ AC Sitagliptin Phos/Metformin HCl [Janumet Xr 50-1,000 mg Tablet] 1 each PO BID Aspirin Coated [Ecotrin -] 81 mg PO DAILY #30 tab MDD 1 01/27/17 Meclizine HCl [Antivert -] 25 mg PO BID PRN #7 tablet MDD 2 01/27/17 Metoprolol Succinate [Toprol XL -] 25 mg PO DAILY #30 tab MDD 1 01/27/17
[2017-01-27 17:24] VITALS: BP 155/77; PULSE 77; TEMP 98.2
[2017-01-28] MEDS ORDERED: INSULIN DETEMIR 100 UNITS/ML MDV SQ SCH (07:00)
--- NOTE | 2017-01-28 13:02 | EKG ---
Test Reason : Blood Pressure : / mmHG Vent. Rate : 077 BPM Atrial Rate : 077 BPM P-R Int : 132 ms QRS Dur : 096 ms QT Int : 390 ms P-R-T Axes : 031 036 022 degrees QTc Int : 441 ms NORMAL SINUS RHYTHM NORMAL ECG WHEN COMPARED WITH ECG OF 26-JAN-2017 08:52, NO SIGNIFICANT CHANGE WAS FOUND Confirmed by SOLANGE VIERA MD ([id number]) on 01/28/2017 1:02:05 PM Referred By: Confirmed By:SOLANGE VIERA MD
--- NOTE | 2017-02-02 14:19 | EKG ---
Test Reason : Blood Pressure : / mmHG Vent. Rate : 093 BPM Atrial Rate : 093 BPM P-R Int : 136 ms QRS Dur : 096 ms QT Int : 354 ms P-R-T Axes : 045 044 018 degrees QTc Int : 440 ms NORMAL SINUS RHYTHM NORMAL ECG WHEN COMPARED WITH ECG OF 18-MAY-2014 14:14, NO SIGNIFICANT CHANGE WAS FOUND Confirmed by ANDREIA RODRIGUES MD ([id number]) on 02/02/2017 2:19:07 PM Referred By: Confirmed By:ANDREIA RODRIGUES MD
== END 2017-01-27 17:40 | disposition short-term general hospital (02) ==
LOC: JER 12:08 → UNDOADMOB 18:59 → JERBED 18:59 → INTOOBSV 21:32 → OBSVTOIN 21:32 → JERBED 01-26 09:12 → J2W 01-26 09:12 → JERBED 01-27 12:22
PROVIDERS: ADMIT Family Medicine; ATTEND Family Medicine
PROC: 3E033GC Introduction of Other Therapeutic Substance into Peripheral Vein, Percutaneous Approach (ICD-10-PCS; principal; 2017-01-27)
PROC: 3E0337Z Introduction of Electrolytic and Water Balance Substance into Peripheral Vein, Percutaneous Approach (ICD-10-PCS; 2017-01-27)
PROC: 3E013VG Introduction of Insulin into Subcutaneous Tissue, Percutaneous Approach (ICD-10-PCS; 2017-01-27)
PROC: 3E013GC Introduction of Other Therapeutic Substance into Subcutaneous Tissue, Percutaneous Approach (ICD-10-PCS; 2017-01-27)
DX: R42 Dizziness and giddiness (principal); R11.2 Nausea with vomiting, unspecified; I10 Essential (primary) hypertension; E11.618 Type 2 diabetes mellitus with other diabetic arthropathy; E78.5 Hyperlipidemia, unspecified; R51 Headache; Z79.4 Long term (current) use of insulin; Z79.84 Long term (current) use of oral hypoglycemic drugs; R77.8 Other specified abnormalities of plasma proteins; R07.9 Chest pain, unspecified; R06.02 Shortness of breath
CPT/HCPCS: 36415; 70450-TC; 70544-TC; 70547-TC; 70551-TC; 78452-TC; 80053; 80061; 80307; 81003; 81015; 82009; 82553; 82803; 83036; 83721; 84484; 85025; 85027; 85610; 86850; 86900; 86901; 93005; 93010; 93017; 93306-TC; 97116-GP; 97162-GP; 99285-25; A9502; G0378; J1644

== ENCOUNTER 2017-03-12 14:55 | Emergency (ER) | payer BC ==
[2017-03-12 15:05] VITALS: BMI 33.5
[2017-03-12] MEDS ORDERED: SODIUM CHLORIDE 1,000 ML IV STA (15:56)
[2017-03-12] MEDS ORDERED: ACETAMINOPHEN 1000 MG/100 ML VIAL (NON FORMULARY) IVPB ONE (15:56)
[2017-03-12] MEDS ORDERED: ONDANSETRON 4 MG/2 ML VIAL IVPUSH PRN (15:56)
[2017-03-12] MEDS ORDERED: ONDANSETRON 4 MG/2 ML VIAL IVPUSH ONE (15:58)
[2017-03-12] MEDS ORDERED: ACETAMINOPHEN INJECTION 100 ML IVPB ONE (15:59)
--- NOTE | 2017-03-12 16:17 | PDOC ---
History of Present Illness - General Chief Complaint: Headache Stated Complaint: MIGRAINE, HX STROKE/WA 02/24/17 Time Seen by Provider: 03/12/17 15:10 History Source: Patient Exam Limitations: No Limitations - History of Present Illness Initial Comments: 03/12/17 15:36 51-year-old male brought in by son for evaluation of continual posterior headache since yesterday without visual changes but complaining of photosensitivity and nausea. Patient denies visual changes, fever, chills, recent head injury, dizziness, chest pain, shortness of breath, or neck pain. Patient states history of mild CVA and small aneurysm. Patient states normally does not have headaches to this extent and did not take anything for the above. Patient denies any lower extremity weakness or paresthesia, or numbness Timing/Duration: reports: 24 hours Severity: Yes: moderate Associated Symptoms: reports: nausea/vomiting Past History - Travel Traveled outside of the country in the last 30 days: No - Past Medical History Allergies/Adverse Reactions: Allergies Allergy/AdvReac Type Severity Reaction Status Date / Time No Known Allergies Allergy Verified 03/12/17 15:05 Home Medications: Ambulatory Orders Atorvastatin Ca [Lipitor] 20 mg PO HS 01/25/17 Empagliflozin [Jardiance] 10 mg PO DAILY 01/25/17 Icosapent Ethyl [Vascepa] 1 gm PO BID 01/25/17 Insulin Glargine/Lixisenatide [[place] 100 Unit-33 Mcg/ml Pen] 15 units SQ AC Sitagliptin Phos/Metformin HCl [Janumet Xr 50-1,000 mg Tablet] 1 each PO BID Aspirin Coated [Ecotrin -] 81 mg PO DAILY #30 tab MDD 1 01/27/17 Meclizine HCl [Antivert -] 25 mg PO BID PRN #7 tablet MDD 2 01/27/17 Metoprolol Succinate [Toprol XL -] 25 mg PO DAILY #30 tab MDD 1 01/27/17 Asthma: Yes Cancer: No Cardiac Disorders: No CVA: Yes COPD: No CHF: No Dementia: No Diabetes: Yes GI Disorders: No Disorders: No HTN: Yes Hypercholesterolemia: Yes Kidney Stones: Yes Liver Disease: No Seizures: No Thyroid Disease: No - Surgical History Abdominal Surgery: No Appendectomy: No Cardiac Surgery: No Cholecystectomy: No Lung Surgery: No Neurologic Surgery: No Orthopedic Surgery: No - Immunization History Immunization Up to Date: Yes - Suicide/Smoking/Psychosocial Hx Smoking Status: No Smoking History: Never smoked Have you smoked in the past 12 months: No Number of Cigarettes Smoked Daily: 0 Hx Alcohol Use: No Drug/Substance Use Hx: No Substance Use Type: None Hx Substance Use Treatment: No Patient Lives Alone: No Lives with/in: spouse/SO Neuro Specific PMHX - Complaint Specific PMHX Migraine: No Review of Systems - Review of Systems Able to Perform ROS?: Yes Constitutional: No: Symptoms Reported HEENTM: No: Symptoms Reported Respiratory: No: Symptoms reported Cardiac (ROS): No: Symptoms Reported ABD/GI: Yes: Nausea : No: Symptoms Reported Musculoskeletal: No: Symptoms Reported Integumentary: No: Symptoms Reported Neurological: Yes: Headache (generalized occipital throbbing) Hematologic/Lymphatic: No: Symptoms Reported *Physical Exam - Vital Signs Last Vital Signs Temp Pulse Resp BP Pulse Ox 98.2 F 107 H 20 140/89 98 03/12/17 15:46 03/12/17 15:46 03/12/17 15:46 03/12/17 15:46 03/12/17 15:46 - Physical Exam General Appearance: Yes: Nourished, Appropriately Dressed. No: Apparent Distress HEENT: positive: EOMI, JOSE (2 mm mary beth) Neck: positive: Normal Thyroid, Supple. negative: Tender, Decreased range of motion Respiratory/Chest: positive: Lungs Clear, Normal Breath Sounds. negative: Respiratory Distress, Accessory Muscle Use Cardiovascular: positive: Regular Rhythm, Regular Rate. negative: Murmur Gastrointestinal/Abdominal: positive: Soft. negative: Tenderness Integumentary: positive: Normal Color, Warm, Moist Neurologic: positive: Normal Mood/Affect, Motor Strength 5/5 (ambulatory with cane). negative: Facial Droop, Sensory Deficit ED Treatment Course - LABORATORY CBC & Chemistry Diagram: 03/12/17 15:40 03/12/17 15:40 - RADIOLOGY Radiology Studies Ordered: Category Date Time Status BRAIN CTA [CT] Stat CT Scan 03/12/17 15:37 Ordered Medical Decision Making - Medical Decision Making 03/12/17 15:39 Patient with complaints of headache since yesterday associated with photosensitivity and mild nausea. Patient exam had no neural focal deficits or acute findings. Patient does have history of hypertension, dyslipidemia, CVA, and aneurysm. Patient ordered for labs, IV fluids, IV Tylenol, CT of the brain, and Zofran. 03/12/17 17:06 Laboratory Tests 03/12/17 03/12/17 03/12/17 15:40 15:40 15:40 WBC 6.0 Hgb 14.0 Hct 40.4 MCV 88.8 Plt Count 156 PT with INR 11.60 Sodium 142 Potassium 4.7 Chloride 106 Carbon Dioxide 28 Anion Gap 8 BUN 19 H Creatinine 1.0 D Creat Clearance w eGFR > 60 Random Glucose 153 H Calcium 8.9 AST 18 D ALT 46 D Albumin 3.4 Urine Ketones Urine Nitrite Ur Leukocyte Esterase Urine RBC (Auto) 03/12/17 15:40 WBC Hgb Hct MCV Plt Count PT with INR Sodium Potassium Chloride Carbon Dioxide Anion Gap BUN Creatinine Creat Clearance w eGFR Random Glucose Calcium AST ALT Albumin Urine Ketones Negative Urine Nitrite Negative Ur Leukocyte Esterase Pending Urine RBC (Auto) 22 Patient states feeling much better after receiving medication. Patient currently awaiting CTA of the brain. 03/12/17 18:31 Patient states feeling much better and eating a dinner tray. CTA results still pending *DC/Admit/Observation/Transfer Diagnosis at time of Disposition: Headache - Discharge Dispostion Disposition: HOME Condition at time of disposition: Stable - Referrals Referrals: Don Evans MD [Primary Care Provider] - - Patient Instructions Printed Discharge Instructions: DI for Headache Additional Instructions: As discussed, please follow up with Dr. Evans by the end of this week for further evaluation. If you develop any fever, chills, vomiting, diarrhea, worsening pr "thunderclap" headache, weakness, slurred speech, change in vision , or any new or other concerning symptoms, please return to the ER immediately. - Post Discharge Activity
[2017-03-12 16:30] LABS: BASOPHIL 0.3 % (0-2.0); EOSINOPHIL 1.4 % (0-4.5); MCH 30.8 pg (25.7-33.7); MCHC 34.7 g/dl (32.0-35.9); MEAN CELL VOLUME 88.8 fl (80-96); MEAN PLT VOLUME 7.7 fl (7.5-11.1); NEUTROPHILS 59.6 % (42.8-82.8); PLATELET COUNT 156 K/MM3 (134-434); RDW 12.9 % (11.9-15.9)
[2017-03-12 16:32] LABS: URINE APPEARANCE SLCLOUDY; URINE BILIRUBIN NEGATIVE (NEGATIVE); URINE BLOOD NEGATIVE (NEGATIVE); URINE COLOR YELLOW; URINE GLUCOSE (UA) 2+ (NEGATIVE); URINE KETONE NEGATIVE (NEGATIVE); URINE NITRITE NEGATIVE (NEGATIVE); URINE UROBILINOGEN NEGATIVE mg/dL (0.2-1.0)
[2017-03-12 16:35] LABS: URINE PROTEIN 3+ (NEGATIVE)
[2017-03-12 16:37] LABS: URINE HYALINE CAST 2 /lpf; URINE MUCUS RARE; URINE RBC 22; URINE WBC 1
[2017-03-12 16:40] LABS: INR 1.03 (0.82-1.09); PROTHROMBIN TIME (PATIENT) 11.6 SEC (9.98-11.88)
[2017-03-12 16:54] LABS: ALBUMIN 3.4 g/dl (3.4-5.0); ANION GAP 8 (8-16); CALCIUM 8.9 mg/dL (8.5-10.1); CO2 28 mmol/L (21-32); GLUCOSE,RANDOM 153 mg/dL (74-106)
[2017-03-12 16:57] LABS: ALK PHOS 99 U/L (45-117); BILIRUBIN,TOTAL 0.4 mg/dL (0.2-1.0); SGOT/AST 18 U/L (15-37); SGPT/ALT 46 U/L (12-78); TOT PROT 6.9 g/dl (6.4-8.2)
[2017-03-12] MEDS ORDERED: METOCLOPRAMIDE HCL INJECTION 10 MG/2 ML VIAL IVPB ONE (19:44)
[2017-03-12] MEDS ORDERED: KETOROLAC TROMETHAMINE 30 MG/1 ML VIAL IVPUSH ONE (19:44)
--- NOTE | 2017-03-12 20:03 | PDOC ---
*Physical Exam - Vital Signs Last Vital Signs Temp Pulse Resp BP Pulse Ox 98 F 101 H 20 134/80 98 03/12/17 18:48 03/12/17 18:48 03/12/17 18:48 03/12/17 18:48 03/12/17 18:48 - Physical Exam Comments: 03/12/17 20:02 Sign-out received from outgoing ER provider Blade. Pt interviewed and examined. Ancillary studies reviewed. Awaiting CTA results. Patient complains of pain. Will order Reglan, Toradol, Benadryl. 03/12/17 20:59 CTA results: CTA shows no major branch occlusion of [place] arteries. No definite acute intracranial hematoma seen. Mild atherosclerotic calcifications seen at the left internal carotid cavernous portion. No definite dissection seen. No aneurysm seen. Read by: Valentin Antony MD Medications just recently administered, will reassess. 03/12/17 21:17 Patient reassessed; states his headache has resolved at this time and he is ready to go home. Discussed results with patient. Patient's PCP is Dr. Don Evans. Advised patient to f/u with Dr. Evans this week and of signs and symptoms for return to ER; patient verbalized understanding and agrees to plan. ED Treatment Course - LABORATORY CBC & Chemistry Diagram: 03/12/17 15:40 03/12/17 15:40 - ADDITIONAL ORDERS Additional order review: Laboratory Results 03/12/17 03/12/17 03/12/17 15:40 15:40 15:40 WBC RBC Hgb Hct MCV MCH MCHC RDW Plt Count MPV Neutrophils % Lymphocytes % Monocytes % Eosinophils % Basophils % PT with INR 11.60 INR 1.03 Sodium 142 Potassium 4.7 Chloride 106 Carbon Dioxide 28 Anion Gap 8 BUN 19 H Creatinine 1.0 D Creat Clearance w eGFR > 60 Random Glucose 153 H Calcium 8.9 Total Bilirubin 0.4 D AST 18 D ALT 46 D Alkaline Phosphatase 99 D Total Protein 6.9 Albumin 3.4 Urine Color Yellow Urine Appearance Slcloudy Urine pH 6.0 Ur Specific [place] 1.030 Urine Protein 3+ H Urine Glucose (UA) 2+ H Urine Ketones Negative Urine Blood Negative Urine Nitrite Negative Urine Bilirubin Negative Urine Urobilinogen Negative Urine WBC (Auto) 1 Urine RBC (Auto) 22 Hyaline Casts 2 Urine Mucus Rare 03/12/17 15:40 WBC 6.0 RBC 4.55 Hgb 14.0 Hct 40.4 MCV 88.8 MCH 30.8 MCHC 34.7 RDW 12.9 Plt Count 156 MPV 7.7 Neutrophils % 59.6 D Lymphocytes % 29.0 D Monocytes % 9.7 Eosinophils % 1.4 D Basophils % 0.3 PT with INR INR Sodium Potassium Chloride Carbon Dioxide Anion Gap BUN Creatinine Creat Clearance w eGFR Random Glucose Calcium Total Bilirubin AST ALT Alkaline Phosphatase Total Protein Albumin Urine Color Urine Appearance Urine pH Ur Specific [place] Urine Protein Urine Glucose (UA) Urine Ketones Urine Blood Urine Nitrite Urine Bilirubin Urine Urobilinogen Urine WBC (Auto) Urine RBC (Auto) Hyaline Casts Urine Mucus 03/12/17 15:40 RBC 4.55 MCV 88.8 MCHC 34.7 RDW 12.9 MPV 7.7 Neutrophils % 59.6 D Lymphocytes % 29.0 D Monocytes % 9.7 Eosinophils % 1.4 D Basophils % 0.3 - Medications Given in the ED: ED Medications Discontinued Medications Generic Name Dose Route Start Last Admin Trade Name Pablo PRN Reason Stop Dose Admin Acetaminophen 1,000 mg 03/12/17 15:56 03/12/17 16:05 Ofirmev Injection - IVPB 03/12/17 15:57 1,000 mg ONCE ONE Administration Sodium Chloride 1,000 mls @ 1,000 mls/hr 03/12/17 15:56 03/12/17 16:05 Normal Saline - IV 03/12/17 16:55 1,000 mls/hr ASDIR STA Administration Ondansetron HCl 4 mg 03/12/17 15:56 03/12/17 16:05 Zofran Injection IVPUSH 4 mg Q4H PRN Administration NAUSEA AND/OR VOMITING Ondansetron HCl 4 mg 03/12/17 15:58 03/12/17 16:05 Zofran Injection IVPUSH 03/12/17 15:59 4 mg ONCE ONE Administration *DC/Admit/Observation/Transfer Diagnosis at time of Disposition: Headache Qualifiers: Headache type: unspecified Headache chronicity pattern: acute headache Intractability: not intractable Qualified Code(s): R51 - Headache - Discharge Dispostion Disposition: HOME Condition at time of disposition: Stable Admit: No - Referrals Referrals: Don Evans MD [Primary Care Provider] - - Patient Instructions Printed Discharge Instructions: DI for Headache Additional Instructions: As discussed, please follow up with Dr. Evans by the end of this week for further evaluation. If you develop any fever, chills, vomiting, diarrhea, worsening pr "thunderclap" headache, weakness, slurred speech, change in vision , or any new or other concerning symptoms, please return to the ER immediately. - Post Discharge Activity
[2017-03-12] MEDS ORDERED: KETOROLAC TROMETHAMINE 30 MG/1 ML VIAL ONE (20:26)
[2017-03-12] MEDS ORDERED: METOCLOPRAMIDE HCL INJECTION 10 MG/2 ML VIAL ONE (20:26)
[2017-03-12 21:32] VITALS: BP 124/60; PULSE 81; TEMP 98.7
[2017-03-12 21:58] LABS: URINE LEUK ESTERASE Negative (NEGATIVE)
--- NOTE | 2017-03-13 17:32 | EKG ---
Test Reason : Blood Pressure : / mmHG Vent. Rate : 081 BPM Atrial Rate : 081 BPM P-R Int : 130 ms QRS Dur : 090 ms QT Int : 374 ms P-R-T Axes : 026 032 022 degrees QTc Int : 434 ms NORMAL SINUS RHYTHM NORMAL ECG WHEN COMPARED WITH ECG OF 27-JAN-2017 14:50, T WAVE VARIATION Confirmed by TELMA ACE MD ([id number]) on 03/13/2017 5:32:15 PM Referred By: Confirmed By:TELMA ACE MD
--- NOTE | 2017-03-13 18:47 | PDOC ---
Patient Follow-up (Call Back) - Post ED Follow - Up Condition at time of discharge: Stable Disposition at time of original discharge: HOME Reason for Call Back: Radiology (Spelled by , CT is no evidence of aneurysm or gross AVM in the [place] no mass effect and no midline shift for hydrocephalus. Evaluation for acute subarachnoid hemorrhages limited due to lack of noncontrast head CT. Called patient to discuss patient's condition he reports that he has no headache at this time. Explained to patient that if pain, headache, or any other concern should return immediately to ER for follow-up noncontrast head CT.)
== END 2017-03-12 21:30 | disposition home or self-care (01) ==
LOC: JER 14:55
PROC: 3E033NZ Introduction of Analgesics, Hypnotics, Sedatives into Peripheral Vein, Percutaneous Approach (ICD-10-PCS; principal; 2017-03-12)
PROC: 3E0333Z Introduction of Anti-inflammatory into Peripheral Vein, Percutaneous Approach (ICD-10-PCS; 2017-03-12)
PROC: 3E033GC Introduction of Other Therapeutic Substance into Peripheral Vein, Percutaneous Approach (ICD-10-PCS; 2017-03-12)
DX: R51 Headache (principal); I10 Essential (primary) hypertension; E78.00 Pure hypercholesterolemia, unspecified; E11.9 Type 2 diabetes mellitus without complications; Z79.4 Long term (current) use of insulin; Z79.84 Long term (current) use of oral hypoglycemic drugs; J45.909 Unspecified asthma, uncomplicated; Z86.73 Personal history of transient ischemic attack (TIA), and cerebral infarction without residual deficits; Z87.442 Personal history of urinary calculi; Z79.82 Long term (current) use of aspirin
CPT/HCPCS: 36415; 70496-TC; 80053; 81003; 81015; 85025; 85610; 93005; 93010; 99283-25

== ENCOUNTER 2017-07-21 09:34 | Inpatient (IN) | payer BC ==
[2017-07-21 09:48] VITALS: BMI 35.2
[2017-07-21] MEDS ORDERED: ASPIRIN 81 MG CHEWABLE TABLETS PO ONE (10:14)
--- NOTE | 2017-07-21 10:18 | PDOC ---
Attending Attestation - Resident Resident Name: is also di - ED Attending Attestation I have performed the following: I have examined & evaluated the patient, The case was reviewed & discussed with the resident, I agree w/resident's findings & plan, Exceptions are as noted - HPI HPI: 07/21/17 10:16 52-year-old male history of prior heart attack , DM(on insulin pump ) hypertension hyperlipidemia recent heart attack in 2017 here today complaining of chest pain. Patient states started early this a.m. did have associated shortness of breath no nausea no vomiting left substernal pain radiating down his left arm. Patient states similar to prior heart attack. 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 strong family history of MD, ( father at 79 and mother 52) 07/21/17 11:42 - Physicial Exam PE: 07/21/17 10:17 Awake alert no acute distress. Lungs are clear bilaterally. Heart is regular without any murmurs rubs or gallops. Abdomen is soft and nontender. Extremities are warm well perfused no edema noted neuro alert and oriented 3. 5 out of 5 strength - Medical Decision Making 07/21/17 10:17 Differential includes acute coronary syndrome, heart attack, CHF, infection, plan EKG troponin aspirin telemetry monitoring chest x-ray. Patient will likely require admission for further telemetry monitoring and rule out MD 07/21/17 11:44 pt labs unremarkable, trop negative. repeat ekg unchnaged. given another nitroglycerin in dept, asa. will admit to tele . consult dr. bell. 07/21/17 13:35 labs unremarkable. repeat ekg unchanged. troponin negative. chest pain improved . cardiology consulted. admit to telemetry. Heart Score/ECG Review #2 General ECG Interpretation: Sinus Rhythm, Normal Rate (79), Normal Intervals, No acute ischemic changes (TWI III, unchanged l.)
[2017-07-21] MEDS ORDERED: ASPIRIN 81 MG CHEWABLE TABLETS ONE (10:23)
[2017-07-21 10:26] LABS: BASO % 0.5 % (0-2.0); EOS % 1.5 % (0-4.5); HEMATOCRIT 42.1 % (35.4-49); HEMOGLOBIN 14.6 GM/dL (11.7-16.9); LYMPH % 25.1 % (8-40); MCH 31.4 pg (25.7-33.7); MCHC 34.7 g/dl (32.0-35.9); MEAN CELL VOLUME 90.4 fl (80-96); MEAN PLT VOLUME 7.1 fl (7.5-11.1); MONO % 9.4 % (3.8-10.2); NEUT % 63.5 % (42.8-82.8); PLATELET COUNT 151 K/MM3 (134-434); RBC 4.66 M/mm3 (4.00-5.60); RDW 13.3 % (11.9-15.9); WHITE BLOOD COUNT 5.1 K/mm3 (4.0-10.0)
--- NOTE | 2017-07-21 10:52 | PDOC ---
History of Present Illness - General Chief Complaint: Chest Pain Stated Complaint: CHEST PAIN Time Seen by Provider: 07/21/17 10:13 History Source: Patient Exam Limitations: No Limitations - History of Present Illness Initial Comments: 07/21/17 10:41 The patient is a 52 year old male with a significant past medical history of asthma, diabetes(on insulin pump), hypertension, HLD,recent heart attack in december 2016, and stroke who presented to the ED today due to chest pain , the pain started 5 am , 7, continuous , radiated to his left arm , sharp in nature , associated with diaphoresis, Sob , palpitation , numbness and tingling in left arm , he took one nitroglycerine with minimal relief, He experienced 2 episode of sob last night treated with bump. pt reports worsening sob and lower ext weakens in last 2 months, he sleep on one pillow, he get sob with 10 stairs and less than a block of flat walking. denies any N/V/D/C.denies any recent cold or sick contact. denies any abdominal pain , dysuria or hematuria, he reports B/l swelling in lower ext , numbness and tingling in LE .he reports mild frontal headache. PCP: Greg Ochoa PMH: Asthma, HTN , HLD, DM , heart attack, stroke PSH: letherotripsey Allergies : NKDA Meds : does not know his meds FH: heart attack both parents , DM , cancer in his sister does not know what type. kidney stones Social: denies smoking or elicit drugs abuse. drink beer socially , he is not working since December PE: General" well nourished in NAD Head: NC.AT ENT: MM membrane , PERRLA, EOMI, Lungs: CTA B/L Heart : RRR, no MRG Abdomen: soft, ND, NT , LLQ insulin pump Legs: trace edema skin: warm and dry Neuro: no focal deficit , normal speech , gait not observed DD: ACS WA NSTEMI pericarditis musculoskeletal work up: EKG Trop cardiac profile cbc, cmp , BMP ASA 162 chewable EKG: NSR with no st, t wave changes 07/21/17 10:53 07/21/17 11:42 07/21/17 11:45 07/21/17 11:56 spoken with and sign out to her . 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 0.4 SL nitroglycerine was given and repeat EKGF with no St , t wave changes, Trop came back negative. Past History - Past Medical History Allergies/Adverse Reactions: Allergies Allergy/AdvReac Type Severity Reaction Status Date / Time No Known Allergies Allergy Verified 07/21/17 09:42 Home Medications: Ambulatory Orders Atorvastatin Ca [Lipitor] 20 mg PO HS 01/25/17 Empagliflozin [Jardiance] 10 mg PO DAILY 01/25/17 Icosapent Ethyl [Vascepa] 1 gm PO BID 01/25/17 Insulin Glargine/Lixisenatide [Soliqua 100 Unit-33 Mcg/ml Pen] 15 units SQ AC Sitagliptin Phos/Metformin HCl [Janumet Xr 50-1,000 mg Tablet] 1 each PO BID Aspirin Coated [Ecotrin -] 81 mg PO DAILY #30 tab MDD 1 01/27/17 Meclizine HCl [Antivert -] 25 mg PO BID PRN #7 tablet MDD 2 01/27/17 Metoprolol Succinate [Toprol XL -] 25 mg PO DAILY #30 tab MDD 1 01/27/17 Asthma: Yes Cancer: No Cardiac Disorders: No CVA: Yes COPD: No CHF: No Dementia: No Diabetes: Yes (insulin pump) GI Disorders: No Disorders: No HTN: Yes Hypercholesterolemia: Yes Kidney Stones: Yes Liver Disease: No Seizures: No Thyroid Disease: No - Surgical History Abdominal Surgery: No Appendectomy: No Cardiac Surgery: No Cholecystectomy: No Lung Surgery: No Neurologic Surgery: No Orthopedic Surgery: No - Immunization History Immunization Up to Date: Yes - Suicide/Smoking/Psychosocial Hx Smoking Status: No Smoking History: Never smoked Have you smoked in the past 12 months: No Number of Cigarettes Smoked Daily: 0 Hx Alcohol Use: No Drug/Substance Use Hx: No Substance Use Type: None Hx Substance Use Treatment: No *Physical Exam - Vital Signs Last Vital Signs Temp Pulse Resp BP Pulse Ox 98.0 F 86 18 189/95 100 07/21/17 09:45 07/21/17 09:45 07/21/17 09:45 07/21/17 09:45 07/21/17 10:00 Heart Score/ECG Review - Electrocardiogram EKG: Non specific repolarization disturbance - Age Age: 45-65 - Risk Factors Risk Factors Heart Score: Yes Hx Hypercholesterolemia, Yes Hx Hypertension, Yes Hx Diabetes, No Smoking History, Yes Positive family hx of cardiac disease Based on the list above the patient has:: >/=3 risk factors or Hx atherosclerotic disease (EKG: NSR with non specific St, T wave changes , QTC 433 , t wave inversion in lwad III not changed from previous EKG) ED Treatment Course - LABORATORY CBC & Chemistry Diagram: 07/21/17 10:14 07/21/17 10:14 - ADDITIONAL ORDERS Additional order review: 07/21/17 10:14 RBC 4.66 MCV 90.4 MCHC 34.7 RDW 13.3 MPV 7.1 L Neutrophils % 63.5 Lymphocytes % 25.1 Monocytes % 9.4 Eosinophils % 1.5 Basophils % 0.5 - Medications Given in the ED: ED Medications Discontinued Medications Generic Name Dose Route Start Last Admin Trade Name Freq PRN Reason Stop Dose Admin Aspirin 162 mg 07/21/17 10:14 07/21/17 10:23 Asa - PO 07/21/17 10:15 162 mg ONCE ONE Administration *DC/Admit/Observation/Transfer Diagnosis at time of Disposition: Anginal chest pain at rest - Referrals Referrals: Don Evans MD [Primary Care Provider] - - Patient Instructions - Post Discharge Activity
[2017-07-21 11:00] LABS: ANION GAP 7 (8-16); BILIRUBIN,TOTAL 0.2 mg/dL (0.2-1.0); BLOOD UREA NITROGEN 15 mg/dL (7-18); CALCIUM 8.2 mg/dL (8.5-10.1); CHLORIDE 108 mmol/L (98-107); CO2 25 mmol/L (21-32); CREATININE 0.8 mg/dL (0.7-1.3); GLUCOSE,RANDOM 181 mg/dL (74-106); POTASSIUM 3.9 mmol/L (3.5-5.1); SGOT/AST 28 U/L (15-37); SGPT/ALT 51 U/L (12-78); SODIUM 140 mmol/L (136-145); TOT PROT 6.4 g/dl (6.4-8.2)
[2017-07-21 11:03] LABS: ALK PHOS 95 U/L (45-117); N-TERMINAL BNP 84.51 pg/ml (5-125)
[2017-07-21] MEDS ORDERED: NITROGLYCERIN SUBLINGUAL 1/150 0.4 MG TAB ONE (11:34)
[2017-07-21] MEDS: NITROGLYCERIN SUBLINGUAL 1/150 0.4 MG TAB SL ONE ×2 (11:35→11:36)
--- NOTE | 2017-07-21 12:26 | HP ---
Admitting History and Physical - Primary Care Physician PCP: Don Evans I - Admission Chief Complaint: chest pain History of Present Illness: The patient is a 52 year old male with a significant past medical history of asthma, diabetes(on insulin pump), hypertension, HLD,recent heart attack in december 2016, and stroke who presented to the ED today due to chest pain , the pain started 5 am , 7/10, continuous , radiated to his left arm , sharp in nature , associated with diaphoresis, Sob , palpitation , numbness and tingling in left arm , he took one nitroglycerine with minimal relief, He experienced 2 episode of sob last night. pt reports worsening sob and lower ext weakens in last 2 months, he sleep on one pillow, he get sob with 10 stairs and less than a block of flat walking. denies any N/V/D/C.denies any recent cold or sick contact. denies any abdominal pain , dysuria or hematuria, he reports B/l swelling in lower ext , numbness and tingling in LE .he reports mild frontal headache. PCP: Nathan Ochoa PMH: Asthma, HTN , HLD, DM , heart attack, stroke PSH: letherotripsey Allergies : NKDA Meds : does not know his meds FH: heart attack both parents , DM , cancer in his sister does not know what type. kidney stones Social: denies smoking or elicit drugs abuse. 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) Cardiovascular: Yes: HTN, Hyperlipdemia Endocrine: Yes: Diabetes Mellitus - Smoking History Smoking history: Never smoked Have you smoked in the past 12 months: No Aproximately how many cigarettes per day: 0 - Alcohol/Substance Use Hx Alcohol Use: No Home Medications - Allergies Allergies/Adverse Reactions: Allergies Allergy/AdvReac Type Severity Reaction Status Date / Time No Known Allergies Allergy Verified 07/21/17 09:42 - Home Medications Home Medications: Ambulatory Orders Atorvastatin Ca [Lipitor] 20 mg PO HS 01/25/17 Empagliflozin [Jardiance] 10 mg PO DAILY 01/25/17 Icosapent Ethyl [Vascepa] 1 gm PO BID 09/27/17 Insulin Glargine/Lixisenatide [Soliqua 100 Unit-33 Mcg/ml Pen] 15 units SQ AC Sitagliptin Phos/Metformin HCl [Janumet Xr 50-1,000 mg Tablet] 1 each PO BID Aspirin Coated [Ecotrin -] 81 mg PO DAILY #30 tab MDD 1 01/27/17 Meclizine HCl [Antivert -] 25 mg PO BID PRN #7 tablet MDD 2 01/27/17 Metoprolol Succinate [Toprol XL -] 25 mg PO DAILY #30 tab MDD 1 01/27/17 Review of Systems - Review of Systems Cardiovascular: reports: Chest Pain, Other (radiating down left arm) Physical Examination Vital Signs: Vital Signs Temperature 98.0 F 07/21/17 09:45 Pulse Rate 88 07/21/17 11:47 Respiratory Rate 20 07/21/17 11:47 Blood Pressure 128/68 07/21/17 11:47 O2 Sat by Pulse Oximetry (%) 100 07/21/17 11:47 Constitutional: Yes: Calm Neck: Yes: Trachea Midline Cardiovascular: Yes: Regular Rate and Rhythm, S1, S2 Respiratory: Yes: CTA Bilaterally Gastrointestinal: Yes: Normal Bowel Sounds, Soft Edema: No Neurological: Yes: Alert, Oriented Labs: CBC, BMP 07/21/17 10:14 07/21/17 10:14 Problem List - Problems (1) Anginal chest pain at rest Assessment/Plan: admit to telemtry echo cardiology evaluation lipid profile- statin trend troponins BB aspirin Code(s): I20.8 - OTHER FORMS OF ANGINA PECTORIS (2) Diabetes Assessment/Plan: endocrine insulin sliding scale levemir [id number] hold oral hypoglycemic meds Code(s): E11.9 - TYPE 2 DIABETES MELLITUS WITHOUT COMPLICATIONS Qualifiers: Diabetes mellitus type: type 2
[2017-07-21] MEDS ORDERED: morphine CARPU-JECT 4 MG/1 ML DISP.SYRIN IVPUSH ONE (12:31)
[2017-07-21] MEDS ORDERED: morphine SULFATE 4 MG/ML VIAL ONE (12:54)
--- NOTE | 2017-07-21 13:15 | CONSULT ---
Consult - text type - Consultation Consultation Note: Patient informed me that he is being follow by [facility] group and requesting [facility] to continue seeing him. Spoke to nurse Lillian who will change the consult to [facility].
--- NOTE | 2017-07-21 14:20 | CONSULT ---
Consult Consult Specialty:: endocrine Referred by:: adrienne day np Reason for Consultation:: iddm insulin pump - History of Present Illness Chief Complaint: chest pain high sugars History of Present Illness: 52 year old male with a significant past medical history of asthma, diabetes(on insulin pump), hypertension, HLD,recent heart attack in december 2016, and stroke who presented to the ED today due to chest pain , the pain started 5 am , 7/10, continuous , radiated to his left arm , sharp in nature has had difficulty controlling sugars as well as pain for last several hours.denies cough fever or chillsp - History Source History Provided By: Patient - 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) Cardio/Vascular: Yes: HTN, Hyperlipdemia Endocrine: Yes: Diabetes Mellitus - Alcohol/Substance Use Hx Alcohol Use: No - Smoking History Smoking history: Never smoked Have you smoked in the past 12 months: No Aproximately how many cigarettes per day: 0 Home Medications - Allergies Allergies/Adverse Reactions: Allergies Allergy/AdvReac Type Severity Reaction Status Date / Time No Known Allergies Allergy Verified 07/21/17 09:42 - Home Medications Home Medications: Ambulatory Orders Atorvastatin Ca [Lipitor] 20 mg PO HS 01/25/17 Empagliflozin [Jardiance] 10 mg PO DAILY 01/25/17 Icosapent Ethyl [Vascepa] 1 gm PO BID 01/25/17 Insulin Glargine/Lixisenatide [Soliqua 100 Unit-33 Mcg/ml Pen] 15 units SQ AC Sitagliptin Phos/Metformin HCl [Janumet Xr 50-1,000 mg Tablet] 1 each PO BID Aspirin Coated [Ecotrin -] 81 mg PO DAILY #30 tab MDD 1 01/27/17 Meclizine HCl [Antivert -] 25 mg PO BID PRN #7 tablet MDD 2 01/27/17 Metoprolol Succinate [Toprol XL -] 25 mg PO DAILY #30 tab MDD 1 01/27/17 Review of Systems - Review of Systems Constitutional: reports: Weakness Eyes: reports: Blurred Vision HENT: reports: No Symptoms Neck: reports: No Symptoms Cardiovascular: reports: Shortness of Breath Respiratory: reports: Exercise Intolerance, SOB on Exertion Gastrointestinal: reports: Bloating Genitourinary: reports: No Symptoms Breasts: reports: No Symptoms Reported Musculoskeletal: reports: No Symptoms Integumentary: reports: No Symptoms Neurological: reports: Numbness, Weakness Endocrine: reports: Unexplained Weight Gain Hematology/Lymphatic: reports: No Symptoms Physical Exam Vital Signs: Vital Signs Temperature 98.0 F 07/21/17 14:01 Pulse Rate 83 07/21/17 14:01 Respiratory Rate 16 07/21/17 14:01 Blood Pressure 149/82 07/21/17 14:01 O2 Sat by Pulse Oximetry (%) 100 07/21/17 14:01 Constitutional: Yes: Anxious Eyes: Yes: EOM Intact HENT: Yes: Normocephalic Neck: Yes: Trachea Midline Cardiovascular: Yes: Regular Rate and Rhythm Respiratory: Yes: CTA Bilaterally Gastrointestinal: Yes: Normal Bowel Sounds ...Rectal Exam: Yes: Deferred Renal/: Yes: WNL Breast(s): Yes: WNL Musculoskeletal: Yes: WNL Extremities: Yes: WNL Integumentary: Yes: WNL Neurological: Yes: Alert, Oriented Labs: CBC, BMP 07/21/17 10:14 07/21/17 10:14 Problem List - Problems (1) Type 1 diabetes mellitus with diabetic neuropathy Code(s): E10.40 - TYPE 1 DIABETES MELLITUS WITH DIABETIC NEUROPATHY, UNSP (2) Diabetes Code(s): E11.9 - TYPE 2 DIABETES MELLITUS WITHOUT COMPLICATIONS Qualifiers: Diabetes mellitus type: type 2 (3) Hypertension Code(s): I10 - ESSENTIAL (PRIMARY) HYPERTENSION Assessment/Plan Current Active Problems Anginal chest pain at rest (Acute) iddm neuropathy htn ashd hyperlipidemia hyperglcemia insulin pump use Abnormal Lab Results 07/21/17 07/21/17 10:14 10:14 MPV 7.1 L Chloride 108 H Anion Gap 7 L Random Glucose 181 H Calcium 8.2 L CK-MB (CK-2) 4.595 H Albumin 3.0 L Laboratory Results - last 24 hr 07/21/17 07/21/17 07/21/17 10:14 10:14 13:34 WBC 5.1 RBC 4.66 Hgb 14.6 Hct 42.1 MCV 90.4 MCH 31.4 MCHC 34.7 RDW 13.3 Plt Count 151 MPV 7.1 L Neutrophils % 63.5 Lymphocytes % 25.1 Monocytes % 9.4 Eosinophils % 1.5 Basophils % 0.5 Sodium 140 Potassium 3.9 Chloride 108 H Carbon Dioxide 25 Anion Gap 7 L BUN 15 D Creatinine 0.8 Creat Clearance w eGFR > 60 Random Glucose 181 H Calcium 8.2 L Total Bilirubin 0.2 D AST 28 D ALT 51 Alkaline Phosphatase 95 Creatine Kinase 290 269 Creatine Kinase Index 1.5 CK-MB (CK-2) 4.595 H Troponin I < 0.02 D < 0.02 B-Natriuretic Peptide 84.51 Total Protein 6.4 Albumin 3.0 L Laboratory Tests 07/21/17 10:14 Random Glucose 181 H plan: insulin pump omnipod patient able to use pump with instructions from CDE BGM ACHS WITH PATIENT USING PUMP TO GIVE DOSE ADJUSTMENT ck hba1c nutrtition consult
[2017-07-21] MEDS ORDERED: INSULIN SLIDING SCALE (NOVOLOG) 1 VIAL SQ SCH ×2 (16:30)
[2017-07-21] MEDS: ATORVASTATIN CA 20 MG TABLET (FP) PO SCH (20:59)
[2017-07-21] MEDS ORDERED: NITROGLYCERIN SUBLINGUAL 1/150 0.4 MG TAB SL PRN (23:39)
[2017-07-22] MEDS: LISINOPRIL 5 MG TABLET (FP) PO SCH ×2 (00:28→09:29)
[2017-07-22] MEDS ORDERED: ACETAMINOPHEN 325 MG TABLET (FP) PO ONE (06:04)
[2017-07-22] MEDS ORDERED: INSULIN DETEMIR 100 UNITS/ML MDV SQ SCH (07:00)
[2017-07-22 07:26] LABS: HEMATOCRIT 43.2 % (35.4-49); HEMOGLOBIN 14.8 GM/dL (11.7-16.9); MCH 31.1 pg (25.7-33.7); MCHC 34.2 g/dl (32.0-35.9); MEAN CELL VOLUME 90.9 fl (80-96); MEAN PLT VOLUME 7.5 fl (7.5-11.1); PLATELET COUNT 160 K/MM3 (134-434); RBC 4.75 M/mm3 (4.00-5.60); RDW 13.1 % (11.9-15.9); WHITE BLOOD COUNT 4.8 K/mm3 (4.0-10.0)
[2017-07-22] MEDS: ASPIRIN COATED 81 MG TABLET.EC PO SCH (09:31)
[2017-07-22] MEDS: metoPROLOL SUCCINATE 25 MG TAB.SR.24H (FP) PO SCH (09:31)
[2017-07-22] MEDS: HEPARIN NA (PORCINE) 5,000 UNITS/ML 1ML VIAL SQ SCH ×2 (09:31→21:39)
[2017-07-22 12:13] LABS: ANION GAP 12 (8-16); BILIRUBIN,TOTAL 0.3 mg/dL (0.2-1.0); BLOOD UREA NITROGEN 15 mg/dL (7-18); CALCIUM 8.1 mg/dL (8.5-10.1); CHLORIDE 104 mmol/L (98-107); CHOLESTEROL 170 mg/dL (50-200); CO2 24 mmol/L (21-32); CREATININE 0.7 mg/dL (0.7-1.3); GLUCOSE,RANDOM 209 mg/dL (74-106); POTASSIUM 3.9 mmol/L (3.5-5.1); SGOT/AST 29 U/L (15-37); SGPT/ALT 55 U/L (12-78); SODIUM 140 mmol/L (136-145); TOT PROT 6.3 g/dl (6.4-8.2); TRIGLYCERIDES 156 mg/dL (35-160)
[2017-07-22 12:14] LABS: ALK PHOS 90 U/L (45-117); N-TERMINAL BNP 83.99 pg/ml (5-125)
[2017-07-22 12:44] LABS: HDL CHOLESTEROL 53 mg/dL (40-60); LDL CHOLESTEROL (ONLY SJRH) 103 mg/dL (5-100)
--- NOTE | 2017-07-22 14:44 | CON.CARD ---
Consult Consult Specialty:: Cardiology Reason for Consultation:: Chest Pain - History of Present Illness History of Present Illness: This is a 52 year old male with a PMH of asthma, diabetes, hypertension, HLD, CVA, and known CAD. He had a cardiac cath at [facility] on 02/01/17 which showed a 75% distal LAD, 75% d1, mid RCA 70%. This was treated medically given his history of a CVA. He presents now with chest pain that started at 5 am, sharp, radiating down his left arm. He took one nitroglycerine with minimal relief. An echocardiogram 07/21/17 showed NL LV function, normal RV function, mild MR, mild TR, EF 59%. Troponin negative. 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) Cardio/Vascular: Yes: HTN, Hyperlipdemia Endocrine: Yes: Diabetes Mellitus - Alcohol/Substance Use Hx Alcohol Use: No - Smoking History Smoking history: Never smoked Have you smoked in the past 12 months: No Aproximately how many cigarettes per day: 0 Home Medications - Allergies Allergies/Adverse Reactions: Allergies Allergy/AdvReac Type Severity Reaction Status Date / Time No Known Allergies Allergy Verified 07/21/17 09:42 - Home Medications Home Medications: Ambulatory Orders Atorvastatin Ca [Lipitor] 20 mg PO HS 01/25/17 Empagliflozin [Jardiance] 10 mg PO DAILY 01/25/17 Icosapent Ethyl [Vascepa] 1 gm PO BID 01/25/17 Insulin Glargine/Lixisenatide [Soliqua 100 Unit-33 Mcg/ml Pen] 15 units SQ AC Sitagliptin Phos/Metformin HCl [Janumet Xr 50-1,000 mg Tablet] 1 each PO BID Aspirin Coated [Ecotrin -] 81 mg PO DAILY #30 tab MDD 1 01/27/17 Meclizine HCl [Antivert -] 25 mg PO BID PRN #7 tablet MDD 2 01/27/17 Metoprolol Succinate [Toprol XL -] 25 mg PO DAILY #30 tab MDD 1 01/27/17 Review of Systems Findings/Remarks: As per HPI Vital Signs: Vital Signs Temperature 98.3 F 07/22/17 07:26 Pulse Rate 69 07/22/17 07:26 Respiratory Rate 18 07/22/17 07:26 Blood Pressure 156/85 07/22/17 07:26 O2 Sat by Pulse Oximetry (%) 100 07/22/17 06:00 Constitutional: Yes: Well Nourished HENT: Yes: WNL Neck: Yes: WNL Respiratory: Yes: WNL, CTA Bilaterally Gastrointestinal: Yes: Soft Cardiovascular: Yes: Regular Rate and Rhythm Heart Sounds: Yes: S1, S2 (No MRHG) Extremities: Yes: WNL Edema: No Neurological: Yes: Alert, Oriented (Grossly nonfocal) - Other Data Labs, Other Data: CBC, BMP 07/22/17 05:10 07/22/17 05:10 Troponin, BNP 07/22/17 05:10 Troponin I < 0.02 B-Natriuretic Peptide 83.99 Troponin, BNP 07/22/17 05:10 Troponin I < 0.02 B-Natriuretic Peptide 83.99 Assessment/Plan Chest Pain Known CAD Cardiac cath at [facility] on 02/01/17 which showed a 75% distal LAD, 75% d1, mid RCA 70%. Treated medically Troponin negative Echocardiogram NL LV fxn EKG no acute changes Would increase anti-anginal medication: Increase Toprol XL to 50 mg dialy Continue ASA 81 mg daily Add Imdur 30 mg PO daily If he continues to have angina despite medical therapy, then would transfer to [facility] for PCI Will follow with you
--- NOTE | 2017-07-22 21:21 | PN ---
Progress Note, Physician Chief Complaint: Chest Pain, CAD History of Present Illness: NAD, seen by Cardiology- known CAD Repeat -Echo unremarkable EKG no changes - Current Medication List Current Medications: Active Medications Aspirin (Ecotrin -) 81 mg PO DAILY [facility] Last Admin: 07/22/17 09:31 Dose: 81 mg Atorvastatin Calcium (Lipitor -) 20 mg PO HS [facility] Last Admin: 07/21/17 20:59 Dose: 20 mg Heparin Sodium (Porcine) (Heparin -) 5,000 unit SQ BID [facility] Last Admin: 07/22/17 09:31 Dose: 5,000 unit Isosorbide Mononitrate (Imdur -) 30 mg PO DAILY [facility] Lisinopril (Prinivil) 5 mg PO DAILY [facility] Last Admin: 07/22/17 09:29 Dose: 5 mg Metoprolol Succinate (Toprol Xl -) 25 mg PO DAILY [facility] Last Admin: 07/22/17 09:31 Dose: 25 mg Morphine Sulfate (Morphine Sulfate) 2 mg IVPUSH Q4H PRN PRN Reason: CHEST PAIN Nitroglycerin (Nitrostat -) 0.4 mg SL Q5M PRN PRN Reason: FOR CHEST PAIN - Objective Vital Signs: Vital Signs Temperature 98.2 F 07/22/17 18:00 Pulse Rate 72 07/22/17 18:00 Respiratory Rate 18 07/22/17 18:00 Blood Pressure 162/82 07/22/17 18:00 O2 Sat by Pulse Oximetry (%) 100 07/22/17 14:00 Constitutional: Yes: Well Nourished, No Distress, Calm Cardiovascular: Yes: Regular Rate and Rhythm Respiratory: Yes: Regular Gastrointestinal: Yes: Normal Bowel Sounds, Soft Musculoskeletal: Yes: WNL Extremities: Yes: WNL Edema: No Peripheral Pulses WNL: Yes Neurological: Yes: Alert, Oriented Psychiatric: Yes: Alert, Oriented Labs: CBC, BMP 07/22/17 05:10 07/22/17 05:10 Problem List - Problems (1) Anginal chest pain at rest Assessment/Plan: -Add Imdur 30 mg po daily -seen by Cardiology -Nitro PRN -Tele monitoring -If pain continues, transfer to [facility] for PCI Code(s): I20.8 - OTHER FORMS OF ANGINA PECTORIS (2) Diabetes Assessment/Plan: -Uncontrolled -A1C at 9.3 -Endocrinology consult -diabetic diet -RD consult -Stressed the importance of dietary compliance -BGM -Insulin Code(s): E11.9 - TYPE 2 DIABETES MELLITUS WITHOUT COMPLICATIONS Qualifiers: Diabetes mellitus type: type 2 Assessment/Plan see problem list
[2017-07-22] MEDS ORDERED: MECLIZINE HCL 25 MG TABLET (FP) PO PRN (21:24)
[2017-07-22] MEDS: ATORVASTATIN CA 20 MG TABLET (FP) PO SCH (21:38)
[2017-07-22] MEDS: ISOSORBIDE MONONITRATE 30 MG TAB.SR.24H (FP) PO SCH (21:38)
[2017-07-22] MEDS: INSULIN DETEMIR 100 UNITS/ML MDV SQ SCH (21:41)
[2017-07-22] MEDS: morphine SULFATE 4 MG/ML VIAL IVPUSH PRN (23:03)
--- NOTE | 2017-07-23 01:08 | PN ---
Progress Note, Physician Chief Complaint: resting comfortable/blood sugar elevated History of Present Illness: dm,iddm,hyperlgycemia,morbid obesity,htn,ashd - Current Medication List Current Medications: Active Medications Aspirin (Ecotrin -) 81 mg PO DAILY [facility] Last Admin: 07/22/17 09:31 Dose: 81 mg Atorvastatin Calcium (Lipitor -) 20 mg PO HS [facility] Last Admin: 07/22/17 21:38 Dose: 20 mg Heparin Sodium (Porcine) (Heparin -) 5,000 unit SQ BID [facility] Last Admin: 07/22/17 21:39 Dose: 5,000 unit Insulin Aspart (Novolog Vial Sliding Scale -) 1 vial SQ TIDAC [facility] PRN Reason: Protocol Insulin Detemir (Levemir Vial) 10 units SQ HS [facility] Last Admin: 07/22/17 21:41 Dose: 10 units Isosorbide Mononitrate (Imdur -) 30 mg PO DAILY [facility] Last Admin: 07/22/17 21:38 Dose: 30 mg Lisinopril (Prinivil) 5 mg PO DAILY [facility] Last Admin: 07/22/17 09:29 Dose: 5 mg Meclizine HCl (Antivert -) 25 mg PO BID PRN PRN Reason: VERTIGO Metoprolol Succinate (Toprol Xl -) 25 mg PO DAILY [facility] Last Admin: 07/22/17 09:31 Dose: 25 mg Morphine Sulfate (Morphine Sulfate) 2 mg IVPUSH Q4H PRN PRN Reason: CHEST PAIN Last Admin: 07/22/17 23:03 Dose: 2 mg Nitroglycerin (Nitrostat -) 0.4 mg SL Q5M PRN PRN Reason: FOR CHEST PAIN Last Admin: 07/22/17 22:41 Dose: 0.4 mg - Objective Vital Signs: Vital Signs Temperature 97.9 F 07/22/17 21:36 Pulse Rate 73 07/22/17 23:10 Respiratory Rate 18 07/22/17 23:10 Blood Pressure 131/75 07/22/17 23:10 O2 Sat by Pulse Oximetry (%) 96 07/22/17 22:00 Constitutional: Yes: Calm Eyes: Yes: EOM Intact HENT: Yes: Normocephalic Neck: Yes: Trachea Midline Cardiovascular: Yes: Regular Rate and Rhythm Respiratory: Yes: CTA Bilaterally Gastrointestinal: Yes: Normal Bowel Sounds ...Rectal Exam: Yes: Deferred Genitourinary: Yes: WNL Breast(s): Yes: WNL Musculoskeletal: Yes: WNL Extremities: Yes: WNL Edema: No Peripheral Pulses WNL: Yes Integumentary: Yes: WNL Neurological: Yes: Alert, Oriented Labs: CBC, BMP 07/22/17 05:10 07/22/17 05:10 Problem List - Problems (1) Type 1 diabetes mellitus with diabetic neuropathy Code(s): E10.40 - TYPE 1 DIABETES MELLITUS WITH DIABETIC NEUROPATHY, UNSP (2) Diabetes Code(s): E11.9 - TYPE 2 DIABETES MELLITUS WITHOUT COMPLICATIONS Qualifiers: Diabetes mellitus type: type 2 (3) Hypertension Code(s): I10 - ESSENTIAL (PRIMARY) HYPERTENSION Assessment/Plan Current Active Problems Anginal chest pain at rest (Acute) Type 1 diabetes mellitus with diabetic neuropathy (Acute) htn ashd Abnormal Lab Results 07/22/17 07/22/17 05:10 05:10 Random Glucose 209 H Hemoglobin A1c % 9.3 H D Calcium 8.1 L Total Protein 6.3 L Albumin 3.0 L Total LDL Cholesterol 103 H Laboratory Results - last 24 hr 07/22/17 07/22/17 07/22/17 05:10 05:10 05:10 WBC 4.8 RBC 4.75 Hgb 14.8 Hct 43.2 MCV 90.9 MCH 31.1 MCHC 34.2 RDW 13.1 Plt Count 160 MPV 7.5 Sodium 140 Potassium 3.9 Chloride 104 Carbon Dioxide 24 Anion Gap 12 BUN 15 Creatinine 0.7 Creat Clearance w eGFR > 60 POC Glucometer Random Glucose 209 H Hemoglobin A1c % 9.3 H D Calcium 8.1 L Magnesium 2.0 Total Bilirubin 0.3 D AST 29 ALT 55 Alkaline Phosphatase 90 Creatine Kinase 170 Creatine Kinase Index 1.6 CK-MB (CK-2) 2.72 Troponin I < 0.02 B-Natriuretic Peptide 83.99 Total Protein 6.3 L Albumin 3.0 L Triglycerides 156 Cholesterol 170 Total LDL Cholesterol 103 H HDL Cholesterol 53 07/22/17 07/22/17 07/22/17 06:03 11:06 17:00 WBC RBC Hgb Hct MCV MCH MCHC RDW Plt Count MPV Sodium Potassium Chloride Carbon Dioxide Anion Gap BUN Creatinine Creat Clearance w eGFR POC Glucometer 203 186 172 Random Glucose Hemoglobin A1c % Calcium Magnesium Total Bilirubin AST ALT Alkaline Phosphatase Creatine Kinase Creatine Kinase Index CK-MB (CK-2) Troponin I B-Natriuretic Peptide Total Protein Albumin Triglycerides Cholesterol Total LDL Cholesterol HDL Cholesterol 07/22/17 21:32 WBC RBC Hgb Hct MCV MCH MCHC RDW Plt Count MPV Sodium Potassium Chloride Carbon Dioxide Anion Gap BUN Creatinine Creat Clearance w eGFR POC Glucometer 263 Random Glucose Hemoglobin A1c % Calcium Magnesium Total Bilirubin AST ALT Alkaline Phosphatase Creatine Kinase Creatine Kinase Index CK-MB (CK-2) Troponin I B-Natriuretic Peptide Total Protein Albumin Triglycerides Cholesterol Total LDL Cholesterol HDL Cholesterol plan: bgm qid novolog scale levemir 25 units am if insuin pump runs out
[2017-07-23] MEDS: INSULIN SLIDING SCALE (NOVOLOG) 1 VIAL SQ SCH ×3 (06:14→17:15)
[2017-07-23] MEDS: HEPARIN NA (PORCINE) 5,000 UNITS/ML 1ML VIAL SQ SCH ×2 (09:43→22:05)
[2017-07-23] MEDS: metoPROLOL SUCCINATE 25 MG TAB.SR.24H (FP) PO SCH (09:44)
[2017-07-23] MEDS: LISINOPRIL 5 MG TABLET (FP) PO SCH (09:44)
[2017-07-23] MEDS: ISOSORBIDE MONONITRATE 30 MG TAB.SR.24H (FP) PO SCH ×2 (09:44→17:22)
[2017-07-23] MEDS: ASPIRIN COATED 81 MG TABLET.EC PO SCH (09:44)
[2017-07-23] MEDS: morphine SULFATE 4 MG/ML VIAL IVPUSH PRN ×2 (10:12→19:53)
[2017-07-23] MEDS ORDERED: INSULIN (NOVOLOG) ASPART 100 UNITS/ML 10ML VIAL ONE ×2 (11:05→17:04)
--- NOTE | 2017-07-23 17:26 | PN ---
Progress Note, Physician Chief Complaint: Chest Pain, CAD History of Present Illness: NAD, seen by Cardiology- known CAD Repeat -Echo unremarkable EKG no changes Imdur 30 mg given last night,still had Chest pain, resolved with nitro - Current Medication List Current Medications: Active Medications Aspirin (Ecotrin -) 81 mg PO DAILY [facility] Last Admin: 07/23/17 09:44 Dose: 81 mg Atorvastatin Calcium (Lipitor -) 20 mg PO HS [facility] Last Admin: 07/22/17 21:38 Dose: 20 mg Heparin Sodium (Porcine) (Heparin -) 5,000 unit SQ BID [facility] Last Admin: 07/23/17 09:43 Dose: 5,000 unit Insulin Aspart (Novolog Vial Sliding Scale -) 1 vial SQ TIDAC [facility] PRN Reason: Protocol Last Admin: 07/23/17 17:15 Dose: 6 unit Insulin Detemir (Levemir Vial) 10 units SQ HS [facility] Last Admin: 07/22/17 21:41 Dose: 10 units Isosorbide Mononitrate (Imdur -) 30 mg PO DAILY [facility] Last Admin: 07/23/17 17:22 Dose: 30 mg Lisinopril (Prinivil) 5 mg PO DAILY [facility] Last Admin: 07/23/17 09:44 Dose: 5 mg Meclizine HCl (Antivert -) 25 mg PO BID PRN PRN Reason: VERTIGO Metoprolol Succinate (Toprol Xl -) 25 mg PO DAILY [facility] Last Admin: 07/23/17 09:44 Dose: 25 mg Morphine Sulfate (Morphine Sulfate) 2 mg IVPUSH Q4H PRN PRN Reason: CHEST PAIN Last Admin: 07/23/17 10:12 Dose: 2 mg Nitroglycerin (Nitrostat -) 0.4 mg SL Q5M PRN PRN Reason: FOR CHEST PAIN Last Admin: 07/22/17 22:41 Dose: 0.4 mg - Objective Vital Signs: Vital Signs Temperature 98.7 F 07/23/17 17:00 Pulse Rate 69 07/23/17 17:00 Respiratory Rate 18 07/23/17 17:00 Blood Pressure 148/78 07/23/17 17:00 O2 Sat by Pulse Oximetry (%) 96 07/23/17 14:00 Constitutional: Yes: Well Nourished, No Distress, Calm Cardiovascular: Yes: Regular Rate and Rhythm Respiratory: Yes: Regular Gastrointestinal: Yes: Normal Bowel Sounds, Soft, Abdomen, Obese Musculoskeletal: Yes: WNL Extremities: Yes: WNL Edema: No Peripheral Pulses WNL: Yes Neurological: Yes: Alert, Oriented Psychiatric: Yes: Alert, Oriented Labs: CBC, BMP 07/22/17 05:10 07/22/17 05:10 Problem List - Problems (1) Anginal chest pain at rest Assessment/Plan: -Add Imdur 30 mg po daily -seen by Cardiology -Metoprolol XL 25 mg once now and then 50 mg po daily starting in AM -Nitro PRN -Tele monitoring -If still has Chest pain, initiate transfer to [facility] for Cath/PCI Code(s): I20.8 - OTHER FORMS OF ANGINA PECTORIS (2) Diabetes Assessment/Plan: -Uncontrolled -A1C at 9.3 -Endocrinology consult -diabetic diet -RD consult -Stressed the importance of dietary compliance -BGM -Insulin Code(s): E11.9 - TYPE 2 DIABETES MELLITUS WITHOUT COMPLICATIONS Qualifiers: Diabetes mellitus type: type 2 Assessment/Plan see problem list
[2017-07-23] MEDS ORDERED: ACETAMINOPHEN 325 MG TABLET (FP) PO PRN (17:33)
[2017-07-23] MEDS ORDERED: metoPROLOL SUCCINATE 25 MG TAB.SR.24H (FP) PO ONE (17:45)
--- NOTE | 2017-07-23 21:31 | EKG ---
Test Reason : Blood Pressure : / mmHG Vent. Rate : 082 BPM Atrial Rate : 082 BPM P-R Int : 138 ms QRS Dur : 094 ms QT Int : 372 ms P-R-T Axes : 041 031 015 degrees QTc Int : 434 ms NORMAL SINUS RHYTHM NORMAL ECG WHEN COMPARED WITH ECG OF 21-JUL-2017 11:02, NO SIGNIFICANT CHANGE WAS FOUND Confirmed by RIN PEARCE MD ([id number]) on 07/23/2017 9:30:57 PM Referred By: Confirmed By:RIN PEARCE MD
--- NOTE | 2017-07-23 21:54 | EKG ---
Test Reason : Blood Pressure : / mmHG Vent. Rate : 079 BPM Atrial Rate : 079 BPM P-R Int : 146 ms QRS Dur : 094 ms QT Int : 378 ms P-R-T Axes : 022 038 018 degrees QTc Int : 433 ms NORMAL SINUS RHYTHM NORMAL ECG WHEN COMPARED WITH ECG OF 21-JUL-2017 09:42, NO SIGNIFICANT CHANGE WAS FOUND Confirmed by RIN PEARCE MD ([id number]) on 07/23/2017 9:54:01 PM Referred By: Confirmed By:RIN PEARCE MD
--- NOTE | 2017-07-23 21:56 | EKG ---
Test Reason : Blood Pressure : / mmHG Vent. Rate : 095 BPM Atrial Rate : 095 BPM P-R Int : 140 ms QRS Dur : 094 ms QT Int : 352 ms P-R-T Axes : 046 044 032 degrees QTc Int : 442 ms NORMAL SINUS RHYTHM MINIMAL VOLTAGE CRITERIA FOR LVH, MAY BE NORMAL VARIANT BORDERLINE ECG WHEN COMPARED WITH ECG OF 12-MAR-2017 16:02, NO SIGNIFICANT CHANGE WAS FOUND Confirmed by RIN PEARCE MD ([id number]) on 07/23/2017 9:56:18 PM Referred By: Confirmed By:RIN PEARCE MD
[2017-07-23] MEDS: ATORVASTATIN CA 20 MG TABLET (FP) PO SCH (22:05)
[2017-07-23] MEDS: INSULIN DETEMIR 100 UNITS/ML MDV SQ SCH (22:06)
[2017-07-24] MEDS: morphine SULFATE 4 MG/ML VIAL IVPUSH PRN ×2 (06:41→16:28)
[2017-07-24] MEDS: INSULIN SLIDING SCALE (NOVOLOG) 1 VIAL SQ SCH ×3 (06:42→17:16)
--- NOTE | 2017-07-24 09:34 | PN ---
Progress Note, Physician Chief Complaint: Chest pain History of Present Illness: This is a 52 year old male with a PMH of asthma, diabetes, hypertension, HLD, CVA, and known CAD. He had a cardiac cath at [facility] on 02/01/17 which showed a 75% distal LAD, 75% d1, mid RCA 70%. This was treated medically given his history of a CVA. He presents now with chest pain that started at 5 am, sharp, radiating down his left arm. He took one nitroglycerine with minimal relief. An echocardiogram 07/21/17 showed NL LV function, normal RV function, mild MR, mild TR, EF 59%. Troponin negative. - Current Medication List Current Medications: Active Medications Acetaminophen (Tylenol -) 650 mg PO Q6H PRN PRN Reason: PAIN LEVEL 1 - 3 Aspirin (Ecotrin -) 81 mg PO DAILY [facility] Last Admin: 07/23/17 09:44 Dose: 81 mg Atorvastatin Calcium (Lipitor -) 20 mg PO HS [facility] Last Admin: 07/23/17 22:05 Dose: 20 mg Heparin Sodium (Porcine) (Heparin -) 5,000 unit SQ BID [facility] Last Admin: 07/23/17 22:05 Dose: 5,000 unit Insulin Aspart (Novolog Vial Sliding Scale -) 1 vial SQ TIDAC [facility] PRN Reason: Protocol Last Admin: 07/24/17 06:42 Dose: 2 unit Insulin Detemir (Levemir Vial) 10 units SQ [facility] Last Admin: 07/23/17 22:06 Dose: 10 units Isosorbide Mononitrate (Imdur -) 30 mg PO DAILY [facility] Last Admin: 07/23/17 17:22 Dose: 30 mg Lisinopril (Prinivil) 5 mg PO DAILY [facility] Last Admin: 07/23/17 09:44 Dose: 5 mg Meclizine HCl (Antivert -) 25 mg PO BID PRN PRN Reason: VERTIGO Metoprolol Succinate (Toprol Xl -) 50 mg PO DAILY [facility] Morphine Sulfate (Morphine Sulfate) 2 mg IVPUSH Q4H PRN PRN Reason: CHEST PAIN Last Admin: 07/24/17 06:41 Dose: 2 mg Nitroglycerin (Nitrostat -) 0.4 mg SL Q5M PRN PRN Reason: FOR CHEST PAIN Last Admin: 03/24/18 22:41 Dose: 0.4 mg - Objective Vital Signs: Vital Signs Temperature 98.7 F 07/24/17 06:00 Pulse Rate 68 07/24/17 06:00 Respiratory Rate 18 07/24/17 06:00 Blood Pressure 151/85 07/24/17 06:00 O2 Sat by Pulse Oximetry (%) 96 07/24/17 06:00 Constitutional: Yes: No Distress Neck: Yes: Supple Cardiovascular: Yes: Regular Rate and Rhythm, S1, S2. No: JVD, Murmur Respiratory: Yes: CTA Bilaterally Gastrointestinal: Yes: Soft Extremities: Yes: WNL Edema: No Labs: CBC, BMP 07/22/17 05:10 07/22/17 05:10 Problem List - Problems (1) Anginal chest pain at rest Code(s): I20.8 - OTHER FORMS OF ANGINA PECTORIS Assessment/Plan This is a 52 year old male with a PMH of asthma, diabetes, hypertension, HLD, CVA, and known CAD. He had a cardiac cath at [facility] on 02/01/17 which showed a 75% distal LAD, 75% d1, mid RCA 70%. This was treated medically given his history of a CVA. He presents now with chest pain that started at 5 am, sharp, radiating down his left arm. He took one nitroglycerine with minimal relief. An echocardiogram 07/21/17 showed NL LV function, normal RV function, mild MR, mild TR, EF 59%. Troponin negative. 1) CAD and angina Patient continues to have chest pain. Reports chest pain and dyspnea on exertion last 5 days which resolved at rest. Has had recurrent chest pain at rest in the hospital. No acute ekg changes or positive troponins. Normal LVEF on echo. Continue aspirin 81mg daily Start plavix would load today with 300mg than plan for daily plavix starting tomorrow 75mg Continue metoprolol/imdur/statin Will likely plan for PCI/stenting at [facility] today or tomorrow. Will go to [facility] and review cath films with cath team and call back floor here to give timeframe for transfer.
[2017-07-24] MEDS: LISINOPRIL 5 MG TABLET (FP) PO SCH (09:36)
[2017-07-24] MEDS: ISOSORBIDE MONONITRATE 30 MG TAB.SR.24H (FP) PO SCH (09:36)
[2017-07-24] MEDS: ASPIRIN COATED 81 MG TABLET.EC PO SCH (09:36)
[2017-07-24] MEDS: HEPARIN NA (PORCINE) 5,000 UNITS/ML 1ML VIAL SQ SCH ×2 (09:37→22:53)
--- NOTE | 2017-07-24 17:04 | PN ---
Progress Note, Physician Chief Complaint: CHART AND EVENTS REVIEWED PATIENT IS AWAKE ALERT FAMILY BEDSIDE AWAITING TRANSFER TO [facility] FOR CARDIAC CATH - Current Medication List Current Medications: Active Medications Acetaminophen (Tylenol -) 650 mg PO Q6H PRN PRN Reason: PAIN LEVEL 1 - 3 Aspirin (Ecotrin -) 81 mg PO DAILY [facility] Last Admin: 07/24/17 09:36 Dose: 81 mg Atorvastatin Calcium (Lipitor -) 20 mg PO HS [facility] Last Admin: 07/23/17 22:05 Dose: 20 mg Heparin Sodium (Porcine) (Heparin -) 5,000 unit SQ BID [facility] Last Admin: 07/24/17 09:37 Dose: Not Given Insulin Aspart (Novolog Vial Sliding Scale -) 1 vial SQ TIDAC [facility] PRN Reason: Protocol Last Admin: 07/24/17 11:32 Dose: Not Given Insulin Detemir (Levemir Vial) 10 units SQ [facility] Last Admin: 07/23/17 22:06 Dose: 10 units Isosorbide Mononitrate (Imdur -) 30 mg PO DAILY [facility] Last Admin: 07/24/17 09:36 Dose: 30 mg Lisinopril (Prinivil) 5 mg PO DAILY [facility] Last Admin: 07/24/17 09:36 Dose: 5 mg Meclizine HCl (Antivert -) 25 mg PO BID PRN PRN Reason: VERTIGO Metoprolol Succinate (Toprol Xl -) 50 mg PO DAILY [facility] Last Admin: 07/24/17 09:36 Dose: 50 mg Morphine Sulfate (Morphine Sulfate) 2 mg IVPUSH Q4H PRN PRN Reason: CHEST PAIN Last Admin: 07/24/17 16:28 Dose: 2 mg Nitroglycerin (Nitrostat -) 0.4 mg SL Q5M PRN PRN Reason: FOR CHEST PAIN Last Admin: 07/22/17 22:41 Dose: 0.4 mg - Objective Vital Signs: Vital Signs Temperature 97.6 F 07/24/17 14:00 Pulse Rate 76 07/24/17 14:00 Respiratory Rate 18 07/24/17 09:29 Blood Pressure 127/77 07/24/17 14:00 O2 Sat by Pulse Oximetry (%) 96 07/24/17 06:00 Constitutional: Yes: Mild Distress Eyes: Yes: WNL HENT: Yes: WNL Neck: Yes: WNL Cardiovascular: Yes: WNL Respiratory: Yes: WNL Gastrointestinal: Yes: WNL Musculoskeletal: Yes: WNL Extremities: Yes: WNL Edema: No Integumentary: Yes: WNL Wound/Incision: Yes: Clean/Dry Neurological: Yes: WNL ...Motor Strength: WNL Psychiatric: Yes: WNL Labs: CBC, BMP 07/22/17 05:10 07/22/17 05:10 Problem List - Problems (1) Anginal chest pain at rest Code(s): I20.8 - OTHER FORMS OF ANGINA PECTORIS (2) Type 1 diabetes mellitus with diabetic neuropathy Code(s): E10.40 - TYPE 1 DIABETES MELLITUS WITH DIABETIC NEUROPATHY, UNSP (3) Elevated troponin Code(s): R74.8 - ABNORMAL LEVELS OF OTHER SERUM ENZYMES (4) Type 2 diabetes mellitus with diabetic neuropathic arthropathy Code(s): E11.610 - TYPE 2 DIABETES MELLITUS W DIABETIC NEUROPATHIC ARTHROPATHY Qualifiers: Diabetes mellitus correction insulin use: with oil heaterman use Assessment/Plan ACUTE CORONARY SYNDROME ON HEPARIN IV WILL NEED CARDIAC CATH COMFORTABLE AT THIS TIME ON NITRO NEEDED 02 SUPPORT ON TELE MONITOR CARDIAC ACTIVITY WILL HAVE CARDIAC CATH TOMORROW IN MORNING EXPLAINED TO HIS IN [place] AND HIS 2 SONS FOR 35 MINS
[2017-07-24] MEDS: ATORVASTATIN CA 20 MG TABLET (FP) PO SCH (22:54)
[2017-07-24] MEDS: INSULIN DETEMIR 100 UNITS/ML MDV SQ SCH (22:54)
[2017-07-25 05:35] VITALS: TEMP 98.2
--- NOTE | 2017-07-25 06:09 | DS ---
Physical Examination Vital Signs: Vital Signs Temperature 98.2 F 07/25/17 05:34 Pulse Rate 69 07/25/17 05:34 Respiratory Rate 20 07/25/17 05:34 Blood Pressure 139/85 07/25/17 05:34 O2 Sat by Pulse Oximetry (%) 96 07/24/17 22:00 Constitutional: Yes: No Distress Eyes: Yes: WNL HENT: Yes: WNL Neck: Yes: WNL Cardiovascular: Yes: WNL Respiratory: Yes: WNL Gastrointestinal: Yes: WNL Renal/: Yes: WNL Musculoskeletal: Yes: WNL Extremities: Yes: WNL Edema: No Peripheral Pulses WNL: Yes Integumentary: Yes: WNL Wound/Incision: Yes: Clean/Dry Neurological: Yes: WNL ...Motor Strength: WNL Psychiatric: Yes: WNL Labs: CBC, BMP 07/22/17 05:10 07/22/17 05:10 Discharge Summary Reason For Visit: ANGINA DECUBITUS Current Active Problems Anginal chest pain at rest (Acute) Type 1 diabetes mellitus with diabetic neuropathy (Acute) Procedures: Principal: ON TELE FOR CARDIAC WORKUP Hospital Course: ADMITTED FOR ACUTE CORONARY SYNDROME, WILL NEED CARDIAC CATH AFTER CARDIAC WORKUP HERE AT [facility] [place]. TANSFERRING TO [facility] FOR CARDIAC CATH Condition: Guarded - Instructions Diet, Activity, Other Instructions: ADA/LOW SODIUM SEE YOUR PRIMARY DOCTOR AFTER BEING DISCHARGED FROM [facility] Referrals: Don Evans MD [Primary Care Provider] - Disposition: TRANSFER ACUTE CARE/OTHER HOSP - Home Medications Comprehensive Discharge Medication List: Ambulatory Orders Atorvastatin Ca [Lipitor] 20 mg PO HS 01/25/17 Empagliflozin [Jardiance] 10 mg PO DAILY 01/25/17 Icosapent Ethyl [Vascepa] 1 gm PO BID 01/25/17 Insulin Glargine/Lixisenatide [Soliqua 100 Unit-33 Mcg/ml Pen] 15 units SQ AC Sitagliptin Phos/Metformin HCl [Janumet Xr 50-1,000 mg Tablet] 1 each PO BID Aspirin Coated [Ecotrin -] 81 mg PO DAILY #30 tab MDD 1 01/27/17 Meclizine HCl [Antivert -] 25 mg PO BID PRN #7 tablet MDD 2 01/27/17 Metoprolol Succinate [Toprol XL -] 25 mg PO DAILY #30 tab MDD 1 01/27/17 Acetaminophen [Tylenol .Regular Strength -] 650 mg PO Q6H PRN tablet 07/25/17 Aspirin Coated [Ecotrin -] 81 mg PO DAILY tablet.ec 07/25/17 Atorvastatin Ca [Lipitor] 20 mg PO HS tablet 07/25/17 Heparin - 5,000 unit SQ BID vial 07/25/17 Insulin (Levemir) [Levemir Vial] 10 units SQ HS ml 07/25/17 Insulin Sliding Scale [Novolog Vial Sliding Scale -] 1 vial SQ TIDAC units Isosorbide Mononitrate [Imdur -] 30 mg PO DAILY tab.sr.24h 07/25/17 Lisinopril [Prinivil] 5 mg PO DAILY tablet 07/25/17 Metoprolol Succinate [Toprol XL -] 50 mg PO DAILY tab.sr.24h 07/25/17 Nitroglycerin Sublingual [Nitrostat -] 0.4 mg SL Q5M PRN tab 07/25/17
[2017-07-25] MEDS: INSULIN SLIDING SCALE (NOVOLOG) 1 VIAL SQ SCH (06:16)
[2017-07-25 08:01] VITALS: BP 134/79; PULSE 71
[2017-07-25] MEDS: HEPARIN NA (PORCINE) 5,000 UNITS/ML 1ML VIAL SQ SCH (09:28)
[2017-07-25] MEDS: ISOSORBIDE MONONITRATE 30 MG TAB.SR.24H (FP) PO SCH (09:28)
[2017-07-25] MEDS: LISINOPRIL 5 MG TABLET (FP) PO SCH (09:28)
[2017-07-25] MEDS: ASPIRIN COATED 81 MG TABLET.EC PO SCH (09:28)
[2017-07-25] MEDS: morphine SULFATE 4 MG/ML VIAL IVPUSH PRN (09:39)
== END 2017-07-25 10:43 | disposition short-term general hospital (02) | DRG 303 ==
LOC: JER 09:34 → INTOOBSV 11:47 → UNDOADMOB 11:47 → JERBED 11:47 → J4W 13:58 → OBSVTOIN 07-22 13:30
PROVIDERS: ADMIT Student in an Organized Health Care Education/Training Program; ATTEND Student in an Organized Health Care Education/Training Program
DX: I25.119 Atherosclerotic heart disease of native coronary artery with unspecified angina pectoris (principal); I24.9 Acute ischemic heart disease, unspecified; E10.40 Type 1 diabetes mellitus with diabetic neuropathy, unspecified; E78.5 Hyperlipidemia, unspecified; I10 Essential (primary) hypertension; E66.01 Morbid (severe) obesity due to excess calories; Z68.35 Body mass index [BMI] 35.0-35.9, adult; Z79.4 Long term (current) use of insulin
CPT/HCPCS: 36415; 71046-TC-FY; 80053; 80061; 82550; 82553; 82962; 83036; 83721; 83735; 83880; 84484; 85025; 85027; 93005; 93010; 93306-TC; 99285-25; G0378; J1644

== ENCOUNTER 2020-09-17 14:35 | Emergency (ER) | payer OTHER ==
[2020-09-17 14:52] VITALS: BP 176/82; PULSE 94; TEMP 98.2; BMI 33.9
[2020-09-17] MEDS ORDERED: DIPHTH,PERTUSS(ACELL),TET 0.5 ML DISP.SYRIN IM ONE ×2 (15:03→15:09)
[2020-09-17] MEDS ORDERED: CIPROFLOXACIN 500 MG TABLET (RESTRICTED TO ID) PO ONE (15:04)
== END 2020-09-17 16:03 | disposition home or self-care (01) ==
LOC: JERFT 14:35
PROC: 3E0234Z Introduction of Serum, Toxoid and Vaccine into Muscle, Percutaneous Approach (ICD-10-PCS; principal; 2020-09-17)
DX: S91.331A Puncture wound without foreign body, right foot, initial encounter (principal)
CPT/HCPCS: 73630-TC-RT-FY; 90715; 99284-25

== ENCOUNTER 2022-11-21 02:54 | Observation (INO) | payer OTHER ==
[2022-11-21] MEDS ORDERED: ACETAMINOPHEN 1000 MG/100 ML BAG IVPB ONE (05:07)
[2022-11-21] MEDS ORDERED: ASPIRIN 81 MG CHEWABLE TABLETS PO ONE (05:07)
[2022-11-21] MEDS ORDERED: ACETAMINOPHEN INJECTION 100 ML IVPB ONE (05:19)
[2022-11-21] MEDS ORDERED: ASPIRIN 81 MG CHEWABLE TABLETS ONE (05:19)
[2022-11-21 05:51] LABS: BASO % 0.5 % (0-2.0); EOS % 2.1 % (0-4.5); HEMATOCRIT 35.9 % (35.4-49); LYMPH % 15.4 % (8-40); MCHC 33.3 g/dl (32.0-35.9); MEAN CELL VOLUME 89.8 fl (80-96); MEAN PLT VOLUME 7.7 fl (7.5-11.1); MONO % 9.5 % (3.8-10.2); NEUT % 72.5 % (42.8-82.8); PLATELET COUNT 183 10^3/uL (134-434); RBC 3.99 M/mm3 (4.00-5.60); RDW 13.5 % (11.9-15.9); WHITE BLOOD COUNT 6.6 K/mm3 (4.0-10.0)
[2022-11-21 06:10] LABS: POTASSIUM 4.5 mmol/L (3.5-5.1)
[2022-11-21 06:12] LABS: CALCIUM 8.7 mg/dL (8.5-10.1)
[2022-11-21 06:13] LABS: ALBUMIN 3.2 g/dl (3.4-5.0)
[2022-11-21 06:16] LABS: CREATININE 1.9 mg/dL (0.55-1.3)
[2022-11-21 06:17] LABS: BILIRUBIN,TOTAL 0.1 mg/dL (0.2-1); TOT PROT 7.2 g/dl (6.4-8.2)
[2022-11-21 06:51] LABS: INR 1.02 (0.83-1.09); PROTHROMBIN TIME (PATIENT) 11.8 SEC (9.7-13.0)
[2022-11-21] MEDS ORDERED: ISOSORBIDE MONONITRATE 30 MG TAB.SR.24H (FP) PO SCH (10:00)
[2022-11-21] MEDS ORDERED: LABETALOL HCL 100 MG TABLET (FP) PO SCH (10:45)
[2022-11-21] MEDS ORDERED: NIFEdipine E.R 60 MG TABLET PO ONE (11:38)
[2022-11-21] MEDS: INSULIN SLIDING SCALE (NOVOLOG) 1 VIAL SQ SCH ×3 (13:15→22:53)
[2022-11-21] MEDS: NIFEdipine E.R 60 MG TABLET PO SCH (13:15)
[2022-11-21] MEDS ORDERED: hydrALAZINE HCL 50 MG TABLET (FP) ONE (13:21)
[2022-11-21] MEDS ORDERED: HEPARIN NA (PORCINE) 5,000 UNITS/ML 1ML VIAL ONE (13:21)
[2022-11-21] MEDS: hydrALAZINE HCL 50 MG TABLET (FP) PO SCH ×2 (13:48→22:52)
[2022-11-21 13:49] LABS: EPI CELLS 32 /uL (0-25.1); HYALINE CASTS 10 /uL (0-3.1); PH,URINE 5.5 (5.0-8.0); URINE APPEARANCE CLEAR; URINE BACTERIA 6 /uL (0-1359); URINE BILIRUBIN NEGATIVE (NEGATIVE); URINE COLOR YELLOW; URINE GLUCOSE (UA) NEGATIVE (NEGATIVE); URINE KETONE NEGATIVE (NEGATIVE); URINE LEUK ESTERASE NEGATIVE (NEGATIVE); URINE NITRITE NEGATIVE (NEGATIVE); URINE PROTEIN 3+ (NEGATIVE); URINE RBC 21 /uL (0-23.9); URINE UROBILINOGEN 0.2 mg/dL (0.2-1.0); URINE WBC 17 /uL (0-25.8)
[2022-11-21] MEDS ORDERED: HEPARIN NA (PORCINE) 5,000 UNITS/ML 1ML VIAL SQ SCH (14:00)
[2022-11-21] MEDS ORDERED: CLOPIDOGREL BISULFATE 75 MG TABLET (FP) ONE (17:58)
[2022-11-21] MEDS: CLOPIDOGREL BISULFATE 75 MG TABLET (FP) PO SCH (18:01)
[2022-11-21] MEDS ORDERED: ENOXAPARIN NA (PORCINE) 100 MG/1 ML DISP.SYRIN SQ ONE ×2 (18:48→18:53)
[2022-11-21] MEDS ORDERED: ATORVASTATIN CA 40 MG TABLET (FP) PO SCH (22:00)
[2022-11-21] MEDS: ATORVASTATIN CA 40 MG TABLET (FP) PO SCH (22:52)
[2022-11-22 00:11] VITALS: BMI 37.3
[2022-11-22] MEDS: INSULIN SLIDING SCALE (NOVOLOG) 1 VIAL SQ SCH ×4 (06:35→21:01)
[2022-11-22] MEDS: hydrALAZINE HCL 50 MG TABLET (FP) PO SCH ×3 (06:35→21:01)
[2022-11-22 08:47] LABS: BASO % 0.5 % (0-2.0); EOS % 2.6 % (0-4.5); HEMATOCRIT 34.8 % (35.4-49); HEMOGLOBIN 11.4 GM/dL (11.7-16.9); LYMPH % 17.6 % (8-40); MCH 29.6 pg (25.7-33.7); MCHC 32.8 g/dl (32.0-35.9); MEAN CELL VOLUME 90.3 fl (80-96); MEAN PLT VOLUME 8.1 fl (7.5-11.1); MONO % 8.5 % (3.8-10.2); NEUT % 70.8 % (42.8-82.8); PLATELET COUNT 201 10^3/uL (134-434); RBC 3.85 M/mm3 (4.00-5.60); RDW 13.9 % (11.9-15.9); WHITE BLOOD COUNT 6.1 K/mm3 (4.0-10.0)
[2022-11-22 09:03] LABS: POTASSIUM 4.5 mmol/L (3.5-5.1)
[2022-11-22 09:09] LABS: CALCIUM 8.4 mg/dL (8.5-10.1)
[2022-11-22 09:10] LABS: MAGNESIUM 2.5 mg/dL (1.8-2.4)
[2022-11-22 09:12] LABS: BILIRUBIN,TOTAL 0.3 mg/dL (0.2-1); CREATININE 2.1 mg/dL (0.55-1.3); PHOSPHOROUS 3.3 mg/dL (2.5-4.9)
[2022-11-22 09:13] LABS: TOT PROT 6.6 g/dl (6.4-8.2)
[2022-11-22] MEDS: CLOPIDOGREL BISULFATE 75 MG TABLET (FP) PO SCH (09:44)
[2022-11-22] MEDS: ASPIRIN COATED 81 MG TABLET.EC PO SCH (09:44)
[2022-11-22] MEDS: NIFEdipine E.R 60 MG TABLET PO SCH (09:44)
[2022-11-22] MEDS ORDERED: INSULIN (NOVOLOG) ASPART 100 UNITS/ML 10ML VIAL ONE ×3 (11:34→20:56)
[2022-11-22] MEDS: ATORVASTATIN CA 40 MG TABLET (FP) PO SCH (21:01)
[2022-11-23] MEDS: hydrALAZINE HCL 50 MG TABLET (FP) PO SCH ×2 (06:41→15:48)
[2022-11-23] MEDS: INSULIN SLIDING SCALE (NOVOLOG) 1 VIAL SQ SCH ×4 (06:41→21:24)
[2022-11-23 09:03] LABS: BASO % 0.4 % (0-2.0); EOS % 2.3 % (0-4.5); HEMATOCRIT 36.2 % (35.4-49); LYMPH % 14.8 % (8-40); MCHC 33.3 g/dl (32.0-35.9); MEAN CELL VOLUME 90.2 fl (80-96); MEAN PLT VOLUME 8.1 fl (7.5-11.1); MONO % 7.8 % (3.8-10.2); NEUT % 74.7 % (42.8-82.8); PLATELET COUNT 210 10^3/uL (134-434); RBC 4.01 M/mm3 (4.00-5.60); RDW 13.5 % (11.9-15.9); WHITE BLOOD COUNT 6.7 K/mm3 (4.0-10.0)
[2022-11-23 09:28] LABS: POTASSIUM 4.7 mmol/L (3.5-5.1)
[2022-11-23 09:40] LABS: ALBUMIN 3.3 g/dl (3.4-5.0)
[2022-11-23 09:41] LABS: BLOOD UREA NITROGEN 41.7 mg/dL (7-18)
[2022-11-23 09:44] LABS: CREATININE 1.9 mg/dL (0.55-1.3)
[2022-11-23 09:46] LABS: BILIRUBIN,TOTAL 0.3 mg/dL (0.2-1); TOT PROT 7.2 g/dl (6.4-8.2)
[2022-11-23] MEDS: ASPIRIN COATED 81 MG TABLET.EC PO SCH (10:55)
[2022-11-23] MEDS: NIFEdipine E.R 60 MG TABLET PO SCH (10:56)
[2022-11-23] MEDS: CLOPIDOGREL BISULFATE 75 MG TABLET (FP) PO SCH (10:56)
[2022-11-23] MEDS ORDERED: INSULIN (NOVOLOG) ASPART 100 UNITS/ML 10ML VIAL ONE ×3 (13:01→21:21)
[2022-11-23 15:00] VITALS: RESP 18
[2022-11-23] MEDS ORDERED: hydrALAZINE HCL 50 MG TABLET (FP) PO ONE (17:11)
[2022-11-23 18:34] VITALS: TEMP 98.4
[2022-11-23 19:10] VITALS: BP 156/57; PULSE 77
[2022-11-23] MEDS: ATORVASTATIN CA 40 MG TABLET (FP) PO SCH (21:22)
== END 2022-11-23 21:40 | disposition home or self-care (01) ==
LOC: JER 02:54 → INTOOBSV 08:12 → JERBED 08:12 → UNDOADMOB 08:12 → JERBED 10:26 → J4W 21:59
PROVIDERS: ADMIT Family Medicine; ATTEND Family Medicine
PROC: 3E033NZ Introduction of Analgesics, Hypnotics, Sedatives into Peripheral Vein, Percutaneous Approach (ICD-10-PCS; principal; 2022-11-21)
PROC: 3E023GC Introduction of Other Therapeutic Substance into Muscle, Percutaneous Approach (ICD-10-PCS; 2022-11-21)
PROC: 3E013VG Introduction of Insulin into Subcutaneous Tissue, Percutaneous Approach (ICD-10-PCS; 2022-11-21)
DX: N17.9 Acute kidney failure, unspecified (principal); I25.10 Atherosclerotic heart disease of native coronary artery without angina pectoris; R07.9 Chest pain, unspecified; E11.9 Type 2 diabetes mellitus without complications; I10 Essential (primary) hypertension; J45.909 Unspecified asthma, uncomplicated; Z86.73 Personal history of transient ischemic attack (TIA), and cerebral infarction without residual deficits; R51.9 Headache, unspecified; Z95.5 Presence of coronary angioplasty implant and graft; R79.9 Abnormal finding of blood chemistry, unspecified
CPT/HCPCS: 36415; 71045-TC-FY; 71046-TC-FY; 76775-TC; 78582-TC; 80053; 81003; 82962; 83520; 83735; 84100; 84155; 84165; 84443; 84484; 85025; 85379; 85610; 85730; 86038; 86160; 86225; 86256; 93005; 93010; 93306-TC; 93970-TC; 99285-25; A9539; A9540; G0378; J1644

== ENCOUNTER 2023-05-30 22:29 | Inpatient (IN) | payer OTHER ==
[2023-05-31 00:35] LABS: BASO % 0.4 % (0-2.0); EOS % 1.6 % (0-4.5); HEMATOCRIT 24.7 % (35.4-49); HEMOGLOBIN 8.4 GM/dL (11.7-16.9); LYMPH % 17.8 % (8-40); MCH 31.2 pg (25.7-33.7); MCHC 34.2 g/dl (32.0-35.9); MEAN CELL VOLUME 91.3 fl (80-96); MEAN PLT VOLUME 8.2 fl (7.5-11.1); NEUT % 72.2 % (42.8-82.8); PLATELET COUNT 184 10^3/uL (134-434); RDW 13.4 % (11.9-15.9); WHITE BLOOD COUNT 8.6 K/mm3 (4.0-10.0)
[2023-05-31 00:51] LABS: POTASSIUM 4.3 mmol/L (3.5-5.1)
[2023-05-31 00:53] LABS: ALBUMIN 3.4 g/dl (3.4-5.0); BLOOD UREA NITROGEN 87.6 mg/dL (7-18); CALCIUM 8.8 mg/dL (8.5-10.1)
[2023-05-31 00:57] LABS: CREATININE 2.4 mg/dL (0.55-1.3)
[2023-05-31 00:58] LABS: BILIRUBIN,TOTAL 0.2 mg/dL (0.2-1); TOT PROT 6.4 g/dl (6.4-8.2)
[2023-05-31] MEDS ORDERED: ASPIRIN 81 MG CHEWABLE TABLETS ONE ×2 (01:01→10:00)
[2023-05-31] MEDS: ASPIRIN 81 MG CHEWABLE TABLETS PO ONE (01:02)
[2023-05-31 03:06] LABS: INR 0.94 (0.83-1.09); PROTHROMBIN TIME (PATIENT) 10.9 SEC (9.7-13.0)
[2023-05-31] MEDS ORDERED: GABAPENTIN 300 MG CAPSULE ONE (10:00)
[2023-05-31] MEDS ORDERED: NIFEdipine E.R. 30 MG TABLET PO ONE (10:00)
[2023-05-31] MEDS ORDERED: PANTOPRAZOLE SODIUM 40 MG VIAL ONE (10:01)
[2023-05-31] MEDS ORDERED: hydrALAZINE HCL 50 MG TABLET (FP) ONE (10:01)
[2023-05-31] MEDS: ASPIRIN COATED 81 MG TABLET.EC PO SCH (10:04)
[2023-05-31] MEDS: hydrALAZINE HCL 50 MG TABLET (FP) PO SCH (10:04)
[2023-05-31] MEDS: NIFEdipine E.R. 30 MG TABLET PO SCH (10:05)
[2023-05-31] MEDS: PANTOPRAZOLE SODIUM 40 MG VIAL IVPUSH SCH (10:05)
[2023-05-31] MEDS: GABAPENTIN 300 MG CAPSULE PO SCH (10:05)
[2023-05-31] MEDS: CLOPIDOGREL BISULFATE 75 MG TABLET (FP) PO SCH (10:05)
[2023-05-31] MEDS: DEXTROSE 5%-0.45% SALINE 1,000 ML IV SCH (10:10)
[2023-05-31] MEDS ORDERED: ISOSORBIDE MONONITRATE 30 MG TAB.SR.24H (FP) PO ONE (16:58)
[2023-05-31] MEDS: ISOSORBIDE MONONITRATE 30 MG TAB.SR.24H (FP) PO SCH (17:08)
[2023-05-31 17:13] LABS: HEMATOCRIT 21.7 % (35.4-49); HEMOGLOBIN 7.4 GM/dL (11.7-16.9); MCH 30.8 pg (25.7-33.7); MCHC 34.1 g/dl (32.0-35.9); MEAN CELL VOLUME 90.3 fl (80-96); MEAN PLT VOLUME 7.5 fl (7.5-11.1); PLATELET COUNT 163 10^3/uL (134-434); RDW 13.7 % (11.9-15.9); WHITE BLOOD COUNT 5.9 K/mm3 (4.0-10.0)
[2023-05-31 18:11] LABS: EPI CELLS 4 /uL (0-25.1); HYALINE CASTS 0 /uL (0-3.1); URINE APPEARANCE CLEAR; URINE BACTERIA 0 /uL (0-1359); URINE BILIRUBIN NEGATIVE (NEGATIVE); URINE COLOR YELLOW; URINE GLUCOSE (UA) NEGATIVE (NEGATIVE); URINE KETONE NEGATIVE (NEGATIVE); URINE LEUK ESTERASE NEGATIVE (NEGATIVE); URINE NITRITE NEGATIVE (NEGATIVE); URINE PROTEIN 2+ (NEGATIVE); URINE RBC 23 /uL (0-23.9); URINE UROBILINOGEN 0.2 mg/dL (0.2-1.0); URINE WBC 5 /uL (0-25.8)
[2023-05-31 21:26] VITALS: BMI 38.2
[2023-05-31] MEDS: ATORVASTATIN CA 80 MG TABLET (FP) PO SCH (22:23)
[2023-06-01 09:28] LABS: BASO % 0.5 % (0-2.0); HEMATOCRIT 23.9 % (35.4-49); HEMOGLOBIN 8.1 GM/dL (11.7-16.9); LYMPH % 17.9 % (8-40); MCH 30.7 pg (25.7-33.7); MCHC 34.1 g/dl (32.0-35.9); MEAN CELL VOLUME 90.1 fl (80-96); MEAN PLT VOLUME 8.1 fl (7.5-11.1); MONO % 8.7 % (3.8-10.2); NEUT % 70.9 % (42.8-82.8); PLATELET COUNT 154 10^3/uL (134-434); RBC 2.65 M/mm3 (4.00-5.60); RDW 14.8 % (11.9-15.9); WHITE BLOOD COUNT 6.5 K/mm3 (4.0-10.0)
[2023-06-01 09:48] LABS: POTASSIUM 4.6 mmol/L (3.5-5.1)
[2023-06-01 10:23] LABS: ALBUMIN 3.1 g/dl (3.4-5.0); BLOOD UREA NITROGEN 81.1 mg/dL (7-18); CALCIUM 8.2 mg/dL (8.5-10.1)
[2023-06-01 10:26] LABS: CREATININE 2.4 mg/dL (0.55-1.3)
[2023-06-01 10:28] LABS: BILIRUBIN,TOTAL 0.4 mg/dL (0.2-1)
[2023-06-01] MEDS: FOLIC ACID 1 MG TABLET (FP) PO SCH (10:28)
[2023-06-01] MEDS: ASCORBIC ACID 500 MG TABLET (FP) PO SCH (10:28)
[2023-06-01] MEDS ORDERED: IOHEXOL (OMNIPAQUE PO) 12 MG/ML - 500 ML BOTTLE PO ONE (11:25)
[2023-06-01] MEDS: FERROUS SO4 325 MG TABLET (FP) PO SCH (11:28)
[2023-06-01] MEDS: INSULIN (LEVEMIR) 100 UNITS/ML UNITS SQ SCH (21:47)
[2023-06-02] MEDS ORDERED: PATIENT'S OWN MEDICATION (NON-FORMULARY) (Dapagliflozin Propanediol 10 MG Tablet) PO SCH (10:00)
[2023-06-02 10:53] LABS: BASO % 0.3 % (0-2.0); EOS % 2.5 % (0-4.5); HEMATOCRIT 27.5 % (35.4-49); HEMOGLOBIN 9.2 GM/dL (11.7-16.9); LYMPH % 13.6 % (8-40); MCH 30.1 pg (25.7-33.7); MCHC 33.4 g/dl (32.0-35.9); MEAN PLT VOLUME 8.3 fl (7.5-11.1); MONO % 8.3 % (3.8-10.2); NEUT % 75.3 % (42.8-82.8); PLATELET COUNT 153 10^3/uL (134-434); RBC 3.06 M/mm3 (4.00-5.60); RDW 14.6 % (11.9-15.9); WHITE BLOOD COUNT 6.5 K/mm3 (4.0-10.0)
[2023-06-02 11:11] LABS: POTASSIUM 5.2 mmol/L (3.5-5.1)
[2023-06-02 11:15] LABS: ALBUMIN 3.1 g/dl (3.4-5.0); BLOOD UREA NITROGEN 67.3 mg/dL (7-18)
[2023-06-02 11:18] LABS: CREATININE 2.5 mg/dL (0.55-1.3)
[2023-06-02 11:20] LABS: BILIRUBIN,TOTAL 0.2 mg/dL (0.2-1); TOT PROT 6.2 g/dl (6.4-8.2)
[2023-06-02] MEDS: INSULIN (NOVOLOG) ASPART 100 UNITS/ML 10ML VIAL SQ SCH (11:45)
[2023-06-02] MEDS: POLYETHYLENE GLYCOL (HEALTHYLAX) 3350 17 GM PACKET PO SCH (16:49)
[2023-06-02] MEDS: SODIUM ZIRCONIUM CYCLOSILICATE (LOKELMA) 5 GM PACKET PO SCH (16:50)
[2023-06-02] MEDS: INSULIN ASPART SLIDING SCALE (NOVOLOG) 1 VIAL SQ SCH (17:11)
[2023-06-02] MEDS: SODIUM BICARBONATE 650 MG TABLET PO SCH (21:50)
[2023-06-02] MEDS: INSULIN (NOVOLOG) ASPART 100 UNITS/ML 10ML VIAL SQ ONE (23:08)
[2023-06-03 10:18] LABS: POTASSIUM 4.8 mmol/L (3.5-5.1)
[2023-06-03 10:23] LABS: CALCIUM 8.5 mg/dL (8.5-10.1)
[2023-06-03 10:24] LABS: BLOOD UREA NITROGEN 55.6 mg/dL (7-18)
[2023-06-03 10:26] LABS: CREATININE 2.1 mg/dL (0.55-1.3)
[2023-06-03 16:30] LABS: HEMATOCRIT 26.8 % (35.4-49); HEMOGLOBIN 9.4 GM/dL (11.7-16.9); MCH 31.1 pg (25.7-33.7); MCHC 34.9 g/dl (32.0-35.9); MEAN CELL VOLUME 89.2 fl (80-96); MEAN PLT VOLUME 8.1 fl (7.5-11.1); PLATELET COUNT 168 10^3/uL (134-434); RDW 14.7 % (11.9-15.9); WHITE BLOOD COUNT 6.6 K/mm3 (4.0-10.0)
[2023-06-03] MEDS ORDERED: INSULIN ASPART SLIDING SCALE (NOVOLOG) 1 VIAL SQ ONE (21:53)
[2023-06-04 09:29] LABS: HEMATOCRIT 26.7 % (35.4-49); HEMOGLOBIN 9.3 GM/dL (11.7-16.9); MCH 31.1 pg (25.7-33.7); MCHC 34.9 g/dl (32.0-35.9); MEAN PLT VOLUME 8.1 fl (7.5-11.1); PLATELET COUNT 165 10^3/uL (134-434); RDW 14.4 % (11.9-15.9); WHITE BLOOD COUNT 6.6 K/mm3 (4.0-10.0)
[2023-06-04 09:50] LABS: POTASSIUM 4.9 mmol/L (3.5-5.1)
[2023-06-04 10:15] LABS: BLOOD UREA NITROGEN 52.5 mg/dL (7-18); CALCIUM 8.4 mg/dL (8.5-10.1)
[2023-06-04 10:18] LABS: CREATININE 2.2 mg/dL (0.55-1.3)
[2023-06-04] MEDS ORDERED: INSULIN ASPART SLIDING SCALE (NOVOLOG) 1 VIAL SQ ONE (18:45)
[2023-06-04] MEDS: PANTOPRAZOLE 40 MG TABLET PO SCH (21:21)
[2023-06-05] MEDS ORDERED: INSULIN (LEVEMIR) 100 UNITS/ML UNITS SQ SCH (07:07)
[2023-06-05] MEDS ORDERED: INSULIN ASPART SLIDING SCALE (NOVOLOG) 1 VIAL SQ ONE (11:05)
[2023-06-05 11:14] LABS: HEMATOCRIT 28.3 % (35.4-49); HEMOGLOBIN 9.7 GM/dL (11.7-16.9); MCH 30.6 pg (25.7-33.7); MCHC 34.3 g/dl (32.0-35.9); MEAN CELL VOLUME 89.1 fl (80-96); PLATELET COUNT 169 10^3/uL (134-434); RBC 3.18 M/mm3 (4.00-5.60); RDW 14.7 % (11.9-15.9); WHITE BLOOD COUNT 7.1 K/mm3 (4.0-10.0)
[2023-06-05 12:00] LABS: POTASSIUM 4.9 mmol/L (3.5-5.1)
[2023-06-05 12:04] LABS: CALCIUM 8.2 mg/dL (8.5-10.1)
[2023-06-05 12:05] VITALS: BP 166/75; PULSE 62; RESP 20; TEMP 97.7
[2023-06-05 12:05] LABS: BLOOD UREA NITROGEN 44.8 mg/dL (7-18)
== END 2023-06-05 12:50 | disposition home or self-care (01) | DRG 378 ==
LOC: JER 22:29 → JERBED 05-31 01:54 → OBSVTOIN 05-31 13:56 → J6S 05-31 20:16
PROVIDERS: ADMIT Internal Medicine; ATTEND Family Medicine
PROC: 30233N1 Transfusion of Nonautologous Red Blood Cells into Peripheral Vein, Percutaneous Approach (ICD-10-PCS; principal; 2023-05-31)
DX: K92.2 Gastrointestinal hemorrhage, unspecified (principal); D62 Acute posthemorrhagic anemia; N17.9 Acute kidney failure, unspecified; E78.5 Hyperlipidemia, unspecified; I25.2 Old myocardial infarction; J45.909 Unspecified asthma, uncomplicated; I12.9 Hypertensive chronic kidney disease with stage 1 through stage 4 chronic kidney disease, or unspecified chronic kidney disease; E11.22 Type 2 diabetes mellitus with diabetic chronic kidney disease; N18.9 Chronic kidney disease, unspecified; E11.610 Type 2 diabetes mellitus with diabetic neuropathic arthropathy; D64.9 Anemia, unspecified; Z86.16 Personal history of COVID-19; Z86.73 Personal history of transient ischemic attack (TIA), and cerebral infarction without residual deficits; I25.10 Atherosclerotic heart disease of native coronary artery without angina pectoris; N28.1 Cyst of kidney, acquired; K59.00 Constipation, unspecified
CPT/HCPCS: 0241U-QW; 36415; 36430; 70450-TC; 71046-TC-FY; 74176-TC; 76775-TC; 80048; 80053; 80061; 81003; 82272; 82728; 82962; 83036; 83540; 83550; 83880; 84443; 84484; 85025; 85027; 85045; 85610; 85730; 86850; 86900; 86901; 86922; 93005; 93010; 93306-TC; 93880-TC; 99285-25; G0378; P9058

== ENCOUNTER 2023-10-20 10:09 | Inpatient (IN) | payer OTHER ==
[2023-10-20 11:16] LABS: BASO % 0.4 % (0-2.0); EOS % 1.8 % (0-4.5); HEMATOCRIT 33.6 % (35.4-49); HEMOGLOBIN 11.4 GM/dL (11.7-16.9); LYMPH % 13.8 % (8-40); MEAN CELL VOLUME 88.2 fl (80-96); MEAN PLT VOLUME 8.3 fl (7.5-11.1); MONO % 8.3 % (3.8-10.2); NEUT % 75.7 % (42.8-82.8); PLATELET COUNT 185 10^3/uL (134-434); RBC 3.81 M/mm3 (4.00-5.60); RDW 13.9 % (11.9-15.9); WHITE BLOOD COUNT 6.3 K/mm3 (4.0-10.0)
[2023-10-20 11:23] LABS: INR 0.92 (0.83-1.09); PROTHROMBIN TIME (PATIENT) 10.4 SEC (9.7-13.0)
[2023-10-20 11:26] LABS: ACTIVATED PTT 28.9 SECONDS (25.2-36.5)
[2023-10-20 11:37] LABS: CHLORIDE 102 mmol/L (98-107); POTASSIUM 4.1 mmol/L (3.5-5.1); SODIUM 133 mmol/L (136-145)
[2023-10-20 11:39] LABS: ALBUMIN 3.2 g/dl (3.4-5.0); ANION GAP 10 mmol/L (4-13); BLOOD UREA NITROGEN 53.4 mg/dL (7-18); CALCIUM 8.6 mg/dL (8.5-10.1); CO2 20 mmol/L (21-32)
[2023-10-20 11:42] LABS: CREATININE 4.2 mg/dL (0.55-1.3); SGOT/AST 18 U/L (15-37); SGPT/ALT 26 U/L (13-61)
[2023-10-20] MEDS ORDERED: ACETAMINOPHEN INJECTION 100 ML IVPB ONE (11:42)
[2023-10-20 11:44] LABS: BILIRUBIN,TOTAL 0.3 mg/dL (0.2-1)
[2023-10-20 11:45] LABS: ALK PHOS 148 U/L (45-117)
[2023-10-20] MEDS: ACETAMINOPHEN 1000 MG/100 ML BAG IVPB ONE (11:46)
[2023-10-20 12:32] LABS: GLUCOSE,RANDOM 553 mg/dL (74-106)
[2023-10-20] MEDS: SODIUM CHLORIDE 0.9% 500 ML INFUS.BAG IV ONE (12:47)
[2023-10-20] MEDS ORDERED: SODIUM CHLORIDE 1,000 ML IV SCH (14:30)
[2023-10-20 16:32] VITALS: BMI 36.2
[2023-10-20] MEDS: INSULIN ASPART SLIDING SCALE (NOVOLOG) 1 VIAL SQ SCH (18:27)
[2023-10-20] MEDS: SODIUM CHLORIDE 1,000 ML IV SCH (19:29)
[2023-10-20] MEDS ORDERED: INSULIN ASPART SLIDING SCALE (NOVOLOG) 1 VIAL SQ ONE (21:17)
[2023-10-20] MEDS: PANTOPRAZOLE 40 MG TABLET PO SCH (21:35)
[2023-10-20] MEDS: SODIUM BICARBONATE 650 MG TABLET PO SCH (21:35)
[2023-10-20] MEDS: hydrALAZINE HCL 50 MG TABLET (FP) PO SCH (21:35)
[2023-10-20] MEDS: HEPARIN NA (PORCINE) 5,000 UNITS/ML 1ML VIAL SQ SCH (21:35)
[2023-10-20] MEDS: POLYETHYLENE GLYCOL (HEALTHYLAX) 3350 17 GM PACKET PO SCH (21:36)
[2023-10-20] MEDS: ATORVASTATIN CA 80 MG TABLET (FP) PO SCH (21:36)
[2023-10-20] MEDS: INSULIN (LEVEMIR) 100 UNITS/ML UNITS SQ SCH (21:37)
[2023-10-21 07:26] LABS: BASO % 0.5 % (0-2.0); EOS % 2.1 % (0-4.5); HEMATOCRIT 32.4 % (35.4-49); HEMOGLOBIN 11.1 GM/dL (11.7-16.9); LYMPH % 13.6 % (8-40); MCH 30.4 pg (25.7-33.7); MCHC 34.2 g/dl (32.0-35.9); MEAN CELL VOLUME 89.1 fl (80-96); MEAN PLT VOLUME 8.4 fl (7.5-11.1); MONO % 8.3 % (3.8-10.2); NEUT % 75.5 % (42.8-82.8); PLATELET COUNT 175 10^3/uL (134-434); RBC 3.63 M/mm3 (4.00-5.60); RDW 13.9 % (11.9-15.9); WHITE BLOOD COUNT 6.5 K/mm3 (4.0-10.0)
[2023-10-21 07:41] LABS: POTASSIUM 4.1 mmol/L (3.5-5.1)
[2023-10-21 07:47] LABS: BLOOD UREA NITROGEN 50.4 mg/dL (7-18); MAGNESIUM 1.9 mg/dL (1.8-2.4)
[2023-10-21 07:48] LABS: ALBUMIN 2.9 g/dl (3.4-5.0)
[2023-10-21 07:50] LABS: CREATININE 3.3 mg/dL (0.55-1.3)
[2023-10-21 07:51] LABS: BILIRUBIN,TOTAL 0.3 mg/dL (0.2-1); TOT PROT 6.7 g/dl (6.4-8.2)
[2023-10-21] MEDS: ASPIRIN COATED 81 MG TABLET.EC PO SCH (09:38)
[2023-10-21] MEDS: ISOSORBIDE MONONITRATE 30 MG TAB.SR.24H (FP) PO SCH (09:38)
[2023-10-21] MEDS: CLOPIDOGREL BISULFATE 75 MG TABLET (FP) PO SCH (09:38)
[2023-10-21] MEDS: FOLIC ACID 1 MG TABLET (FP) PO SCH (09:38)
[2023-10-21] MEDS: NIFEdipine E.R. 30 MG TABLET PO SCH (09:39)
[2023-10-21 10:14] VITALS: RESP 18
[2023-10-21] MEDS ORDERED: INSULIN ASPART SLIDING SCALE (NOVOLOG) 1 VIAL SQ ONE ×2 (11:30→16:49)
[2023-10-22] MEDS: INSULIN (LEVEMIR) 100 UNITS/ML UNITS SQ SCH ×2 (07:28→21:50)
[2023-10-22 08:35] LABS: POTASSIUM 3.9 mmol/L (3.5-5.1)
[2023-10-22 08:55] LABS: CALCIUM 7.9 mg/dL (8.5-10.1)
[2023-10-22 08:56] LABS: ALBUMIN 2.8 g/dl (3.4-5.0); BLOOD UREA NITROGEN 54.6 mg/dL (7-18)
[2023-10-22 08:58] LABS: CREATININE 3.9 mg/dL (0.55-1.3)
[2023-10-22 08:59] LABS: BILIRUBIN,TOTAL 0.8 mg/dL (0.2-1); TOT PROT 6.2 g/dl (6.4-8.2)
[2023-10-22] MEDS: NIFEdipine E.R 60 MG TABLET PO SCH (10:09)
[2023-10-22] MEDS: INSULIN (NOVOLOG) ASPART 100 UNITS/ML 10ML VIAL SQ SCH (11:47)
[2023-10-22] MEDS ORDERED: INSULIN (LEVEMIR) 100 UNITS/ML UNITS SQ SCH (22:00)
[2023-10-23 06:16] VITALS: PULSE 70
[2023-10-23 09:24] VITALS: TEMP 98.2
[2023-10-23 10:39] VITALS: BP 122/67
== END 2023-10-23 13:02 | disposition home health service (06) | DRG 303 ==
LOC: JER 10:09 → JERBED 12:48 → J4W 15:39
PROVIDERS: ADMIT Family Medicine; ATTEND Family Medicine
DX: I25.10 Atherosclerotic heart disease of native coronary artery without angina pectoris (principal); N17.9 Acute kidney failure, unspecified; R07.89 Other chest pain; E78.5 Hyperlipidemia, unspecified; I12.9 Hypertensive chronic kidney disease with stage 1 through stage 4 chronic kidney disease, or unspecified chronic kidney disease; E11.22 Type 2 diabetes mellitus with diabetic chronic kidney disease; E11.40 Type 2 diabetes mellitus with diabetic neuropathy, unspecified; N18.9 Chronic kidney disease, unspecified; N28.1 Cyst of kidney, acquired; Z86.73 Personal history of transient ischemic attack (TIA), and cerebral infarction without residual deficits; Z79.4 Long term (current) use of insulin
CPT/HCPCS: 36415; 71045-TC-FY; 71275-TC; 74174-TC; 76775-TC; 80053; 80061; 82962; 83036; 83735; 84100; 84443; 84484; 85025; 85610; 85730; 86850; 86900; 86901; 93005; 93010; 97116-GP; 97161-GP; 99285-25; J0131; J1644; Q9967

== ENCOUNTER 2024-01-09 14:16 | Observation (INO) | payer OTHER ==
[2024-01-09 15:04] LABS: BASO % 0.2 % (0-2.0); HEMATOCRIT 33.3 % (35.4-49); HEMOGLOBIN 11.3 GM/dL (11.7-16.9); LYMPH % 8.8 % (8-40); MCH 30.7 pg (25.7-33.7); MCHC 34.1 g/dl (32.0-35.9); MEAN CELL VOLUME 90.1 fl (80-96); MEAN PLT VOLUME 6.7 fl (7.5-11.1); MONO % 9.7 % (3.8-10.2); NEUT % 80.3 % (42.8-82.8); PLATELET COUNT 195 10^3/uL (134-434); RBC 3.69 M/mm3 (4.00-5.60); RDW 13.7 % (11.9-15.9); WHITE BLOOD COUNT 9.4 K/mm3 (4.0-10.0)
[2024-01-09 15:27] LABS: POTASSIUM 3.5 mmol/L (3.5-5.1)
[2024-01-09 15:29] LABS: CALCIUM 8.5 mg/dL (8.5-10.1)
[2024-01-09 15:30] LABS: ALBUMIN 3.2 g/dl (3.4-5.0); BLOOD UREA NITROGEN 47.5 mg/dL (7-18)
[2024-01-09 15:33] LABS: CREATININE 2.9 mg/dL (0.55-1.3)
[2024-01-09 15:34] LABS: BILIRUBIN,TOTAL 0.2 mg/dL (0.2-1)
[2024-01-09 15:35] LABS: TOT PROT 7.2 g/dl (6.4-8.2)
[2024-01-09] MEDS: LACTATED RINGERS SOLUTION 1000 ML INFUS.BAG IV ONE (15:38)
[2024-01-09] MEDS: hydrALAZINE HCL 50 MG TABLET (FP) PO ONE (20:39)
[2024-01-09] MEDS: hydrALAZINE HCL 50 MG TABLET (FP) PO SCH (21:46)
[2024-01-09] MEDS: INSULIN ASPART SLIDING SCALE (NOVOLOG) 1 VIAL SQ SCH (21:46)
[2024-01-09] MEDS: ATORVASTATIN CA 80 MG TABLET (FP) PO SCH (21:46)
[2024-01-09 22:38] LABS: MAGNESIUM 2.7 mg/dL (1.8-2.4)
[2024-01-09 22:56] VITALS: BMI 35.2
[2024-01-10 07:15] LABS: BASO % 0.3 % (0-2.0); EOS % 1.3 % (0-4.5); LYMPH % 15.4 % (8-40); MCH 30.5 pg (25.7-33.7); MCHC 33.4 g/dl (32.0-35.9); MEAN CELL VOLUME 91.4 fl (80-96); MEAN PLT VOLUME 7.3 fl (7.5-11.1); MONO % 8.6 % (3.8-10.2); NEUT % 74.4 % (42.8-82.8); PLATELET COUNT 196 10^3/uL (134-434); RBC 3.61 M/mm3 (4.00-5.60); RDW 13.3 % (11.9-15.9); WHITE BLOOD COUNT 6.7 K/mm3 (4.0-10.0)
[2024-01-10 07:36] LABS: POTASSIUM 3.9 mmol/L (3.5-5.1)
[2024-01-10 07:38] LABS: CALCIUM 8.4 mg/dL (8.5-10.1)
[2024-01-10 07:39] LABS: BLOOD UREA NITROGEN 39.6 mg/dL (7-18)
[2024-01-10 07:42] LABS: CREATININE 2.3 mg/dL (0.55-1.3)
[2024-01-10 07:43] LABS: BILIRUBIN,TOTAL 0.4 mg/dL (0.2-1); TOT PROT 6.6 g/dl (6.4-8.2)
[2024-01-10] MEDS: NIFEdipine E.R 60 MG TABLET PO SCH (09:42)
[2024-01-10] MEDS: ASPIRIN COATED 81 MG TABLET.EC PO SCH (09:42)
[2024-01-10] MEDS: ISOSORBIDE MONONITRATE 30 MG TAB.SR.24H (FP) PO SCH (09:42)
[2024-01-10] MEDS: CLOPIDOGREL BISULFATE 75 MG TABLET (FP) PO SCH (09:42)
[2024-01-10] MEDS: DAPAGLIFLOZIN PROPANEDIOL PO SCH (15:23)
[2024-01-11 00:43] VITALS: RESP 18
[2024-01-11 10:03] VITALS: BP 162/72; PULSE 674; TEMP 97.9
== END 2024-01-11 13:51 | disposition home or self-care (01) ==
LOC: JER 14:16 → JERBED 16:15 → J4S 18:53
PROVIDERS: ADMIT Internal Medicine; ATTEND Internal Medicine
PROC: 3E013VG Introduction of Insulin into Subcutaneous Tissue, Percutaneous Approach (ICD-10-PCS; principal; 2024-01-09)
PROC: 3E0337Z Introduction of Electrolytic and Water Balance Substance into Peripheral Vein, Percutaneous Approach (ICD-10-PCS; 2024-01-09)
DX: R55 Syncope and collapse (principal); N17.9 Acute kidney failure, unspecified; R07.89 Other chest pain; R01.1 Cardiac murmur, unspecified; E11.22 Type 2 diabetes mellitus with diabetic chronic kidney disease; I12.9 Hypertensive chronic kidney disease with stage 1 through stage 4 chronic kidney disease, or unspecified chronic kidney disease; N18.9 Chronic kidney disease, unspecified; I25.10 Atherosclerotic heart disease of native coronary artery without angina pectoris; N28.1 Cyst of kidney, acquired; E11.9 Type 2 diabetes mellitus without complications; R51.9 Headache, unspecified; I25.2 Old myocardial infarction; E78.5 Hyperlipidemia, unspecified; Z86.73 Personal history of transient ischemic attack (TIA), and cerebral infarction without residual deficits
CPT/HCPCS: 36415; 71046-TC-FY; 80053; 82550; 82553; 82962; 83036; 83605; 83735; 84484; 85025; 93005; 93010; 93306-TC; 93880-TC; 96372; 99285-25; G0378

== ENCOUNTER 2024-04-14 10:01 | Emergency (ER) | payer OTHER ==
[2024-04-14 10:06] VITALS: BMI 33.3
[2024-04-14] MEDS: LACTATED RINGERS SOLUTION 1000 ML INFUS.BAG IV ONE (11:12)
[2024-04-14 11:15] LABS: BASO % 0.3 % (0-2.0); EOS % 2.1 % (0-4.5); HEMATOCRIT 36.2 % (35.4-49); HEMOGLOBIN 11.6 GM/dL (11.7-16.9); LYMPH % 15.9 % (8-40); MCH 28.6 pg (25.7-33.7); MCHC 32.2 g/dl (32.0-35.9); MEAN CELL VOLUME 88.8 fl (80-96); MEAN PLT VOLUME 7.1 fl (7.5-11.1); MONO % 7.5 % (3.8-10.2); NEUT % 74.2 % (42.8-82.8); PLATELET COUNT 218 10^3/uL (134-434); RBC 4.07 M/mm3 (4.00-5.60); RDW 14.8 % (11.9-15.9); WHITE BLOOD COUNT 6.3 K/mm3 (4.0-10.0)
[2024-04-14 11:18] LABS: URINE APPEARANCE CLEAR; URINE BILIRUBIN NEGATIVE (NEGATIVE); URINE COLOR YELLOW; URINE GLUCOSE (UA) 2+ (NEGATIVE); URINE KETONE NEGATIVE (NEGATIVE); URINE LEUK ESTERASE NEGATIVE (NEGATIVE); URINE NITRITE NEGATIVE (NEGATIVE); URINE PROTEIN 3+ (NEGATIVE); URINE UROBILINOGEN 0.2 mg/dL (0.2-1.0)
[2024-04-14 11:22] LABS: EPI CELLS 5.7 /uL (0-25.1); HYALINE CASTS 0.54 /uL (0-3.1); URINE BACTERIA 5.6 /uL (0-1359); URINE RBC 16.3 /uL (0-23.9); URINE WBC 9.4 /uL (0-25.8)
[2024-04-14 11:42] LABS: POTASSIUM 4.5 mmol/L (3.5-5.1)
[2024-04-14 11:43] LABS: CALCIUM 8.5 mg/dL (8.5-10.1)
[2024-04-14 11:44] LABS: ALBUMIN 3.1 g/dl (3.4-5.0)
[2024-04-14 11:47] LABS: CREATININE 2.3 mg/dL (0.55-1.3)
[2024-04-14 11:49] LABS: BILIRUBIN,TOTAL 0.4 mg/dL (0.2-1); TOT PROT 7.1 g/dl (6.4-8.2)
[2024-04-14] MEDS ORDERED: MAG HYDROX/AL HYDROX/SIMETH 30 ML UNIT-DOSE CUP ONE (12:57)
[2024-04-14] MEDS: MAG HYDROX/AL HYDROX/SIMETH -MYLANTA- ORAL SUSPENSION PO ONE (12:57)
[2024-04-14] MEDS ORDERED: FAMOTIDINE 20 MG/50 ML IVPB 20 MG/50 ML MG IVPB ONE (12:57)
[2024-04-14] MEDS: FAMOTIDINE 20 MG/50 ML IVPB 20 MG in PREMIX 50 IVPB ONE (12:58)
[2024-04-14 13:32] VITALS: BP 166/73; PULSE 65; RESP 16; TEMP 98
== END 2024-04-14 13:35 | disposition home or self-care (01) ==
LOC: JER 10:01
PROC: 3E033GC Introduction of Other Therapeutic Substance into Peripheral Vein, Percutaneous Approach (ICD-10-PCS; principal; 2024-04-14)
DX: K52.9 Noninfective gastroenteritis and colitis, unspecified (principal); R10.84 Generalized abdominal pain; R68.83 Chills (without fever)
CPT/HCPCS: 36415; 80053; 81003; 85025; 87086; 96365; 99284-25

== ENCOUNTER 2025-02-14 15:08 | Inpatient (IN) | payer OTHER ==
[2025-02-14] MEDS ORDERED: ASPIRIN 81 MG CHEWABLE TABLETS ONE (15:32)
[2025-02-14] MEDS ORDERED: ACETAMINOPHEN INJECTION 100 ML ONE (15:33)
[2025-02-14] MEDS: ACETAMINOPHEN 1000 MG/100 ML BAG IVPB ONE ×2 (15:37→23:33)
[2025-02-14] MEDS: ASPIRIN 81 MG CHEWABLE TABLETS PO ONE (15:37)
[2025-02-14 15:43] LABS: MCHC 32.5 g/dl (32.3-36.5); MEAN CELL VOLUME 93.5 fl (79.0-92.2); MEAN PLT VOLUME 10.1 fl (9.4-12.4); RDW 12.4 % (12.2-16.1)
[2025-02-14 15:54] LABS: INR 1.06 (0.83-1.09); PROTHROMBIN TIME (PATIENT) 11.5 SEC (9.7-13.0)
[2025-02-14 15:57] LABS: ACTIVATED PTT 31.4 SECONDS (25.2-36.5)
[2025-02-14 16:03] LABS: GLUCOSE,RANDOM 122.0 mg/dL (74-106)
[2025-02-14 16:04] LABS: TOT PROT 6.6 g/dl (6.4-8.2)
[2025-02-14 16:05] LABS: CO2 16.0 mmol/L (21-32)
[2025-02-14 16:06] LABS: ALK PHOS 82.0 U/L (40-150)
[2025-02-14 16:09] LABS: CREATININE 4.85 mg/dL (0.55-1.3); SGOT/AST 17.0 U/L (5-34); SGPT/ALT 15.0 U/L (0-55)
[2025-02-14 16:38] LABS: HCV DIAGNOSTIC IN-HOUSE W/RFLX NON-REACTIVE (NONREACTIVE); HIV INTERPRETATION NEGATIVE (NEGATIVE)
[2025-02-14] MEDS ORDERED: fentaNYL CITRATE 250 MCG/5 ML VIAL ONE (16:38)
[2025-02-14] MEDS: SODIUM CHLORIDE 0.9% 500 ML INFUS.BAG IV ONE (17:23)
[2025-02-14] MEDS: morphine CARPU-JECT 4 MG/1 ML DISP.SYRIN IVPUSH ONE (17:38)
[2025-02-14] MEDS ORDERED: LIDOCAINE 4% PATCH TP ONE (18:43)
[2025-02-14] MEDS: LIDOCAINE 4% PATCH TP ONE (18:48)
[2025-02-14 18:57] LABS: URINE APPEARANCE CLOUDY; URINE COLOR YELLOW
[2025-02-14 18:58] LABS: URINE BILIRUBIN NEGATIVE (NEGATIVE); URINE GLUCOSE (UA) NEGATIVE (NEGATIVE); URINE KETONE NEGATIVE (NEGATIVE); URINE LEUK ESTERASE NEGATIVE (NEGATIVE); URINE NITRITE NEGATIVE (NEGATIVE); URINE PROTEIN 4+ (NEGATIVE); URINE UROBILINOGEN 0.2 mg/dL (0.2-1.0)
[2025-02-14] MEDS: SODIUM CHLORIDE 1,000 ML IV SCH (20:58)
[2025-02-14] MEDS ORDERED: POLYETHYLENE GLYCOL (HEALTHYLAX) 3350 17 GM PACKET PO PRN (22:12)
[2025-02-14] MEDS: SODIUM BICARBONATE 650 MG TABLET PO SCH (22:12)
[2025-02-14] MEDS: HEPARIN NA (PORCINE) 5,000 UNITS/ML 1ML VIAL SQ SCH (22:13)
[2025-02-14] MEDS: ATORVASTATIN CA 80 MG TABLET (FP) PO SCH (22:13)
[2025-02-14] MEDS: INSULIN ASPART SLIDING SCALE (NOVOLOG) 1 VIAL SQ SCH (22:14)
[2025-02-14] MEDS: INSULIN GLARGINE (LANTUS) 100 UNITS/ML UNITS SQ SCH (22:14)
[2025-02-14] MEDS: hydrALAZINE HCL 50 MG TABLET (FP) PO SCH (22:15)
[2025-02-14] MEDS: CALCIUM CARBONATE 650 MG TABLET PO ONE (23:31)
[2025-02-15] MEDS: POLYETHYLENE GLYCOL (HEALTHYLAX) 3350 17 GM PACKET PO SCH ×2 (00:19→21:41)
[2025-02-15] MEDS: LIDOCAINE PATCH REMOVAL MC ONE (06:07)
[2025-02-15 06:42] LABS: ABSOLUTE IMMATURE GRANULOCYTES 0.03 x10^3/uL (0.0-0.031); BASOPHILS # 0.02 x10^3/uL (0.01-0.08); EOSINOPHIL % 2.4 % (0.8-7.0); EOSINOPHILS # 0.13 x10^3/uL (0.04-0.54); MCHC 32.3 g/dl (32.3-36.5); MEAN CELL VOLUME 94.7 fl (79.0-92.2); MEAN PLT VOLUME 10.7 fl (9.4-12.4); MONOCYTE # 0.48 x10^3/uL (0.30-0.82); MONOCYTE % 9.0 % (5.3-12.2); RDW 12.6 % (12.2-16.1)
[2025-02-15 07:11] LABS: GLUCOSE,RANDOM 98.0 mg/dL (74-106)
[2025-02-15 07:12] LABS: TOT PROT 5.7 g/dl (6.4-8.2)
[2025-02-15 07:13] LABS: CO2 16.0 mmol/L (21-32)
[2025-02-15 07:14] LABS: ALK PHOS 69.0 U/L (40-150)
[2025-02-15 07:17] LABS: CREATININE 5.16 mg/dL (0.55-1.3); SGOT/AST 15.0 U/L (5-34); SGPT/ALT 12.0 U/L (0-55)
[2025-02-15 08:15] LABS: IRON SERUM 40.0 ug/dL (50-175)
[2025-02-15] MEDS: ISOSORBIDE MONONITRATE 30 MG TAB.SR.24H (FP) PO SCH (09:32)
[2025-02-15] MEDS: CLOPIDOGREL BISULFATE 75 MG TABLET (FP) PO SCH (09:32)
[2025-02-15] MEDS: FOLIC ACID 1 MG TABLET (FP) PO SCH (09:33)
[2025-02-15] MEDS: ASPIRIN COATED 81 MG TABLET.EC PO SCH (09:33)
[2025-02-15] MEDS: TAMSULOSIN HCL 0.4 MG CAP PO SCH (09:33)
[2025-02-15] MEDS: NIFEdipine E.R 60 MG TABLET PO SCH (09:33)
[2025-02-15] MEDS: FERROUS SO4 325 MG TABLET (FP) PO SCH (09:33)
[2025-02-15] MEDS ORDERED: ALBUTEROL SO4 HFA INHALER IH PRN (09:40)
[2025-02-15] MEDS: BUDESONIDE/FORMETEROL FUMARATE 160/4.5 mcg INHALER IH SCH (11:33)
[2025-02-15] MEDS: ALBUTEROL SO4 2.5/IPRATROPIUM 0.5 INH SOL 3 ML VIAL.NEB. NEB SCH (12:42)
[2025-02-15] MEDS: SODIUM CHLORIDE 0.45% 1,000 ML IV SCH (13:17)
[2025-02-15] MEDS: NITROGLYCERIN SUBLINGUAL 1/150 0.4 MG TAB SL PRN (16:30)
[2025-02-15] MEDS ORDERED: NITROGLYCERIN 0.4 MG/HOUR TD PATCH TD PRN (17:11)
[2025-02-15] MEDS: NITROGLYCERIN SUBLINGUAL 1/150 0.4 MG TAB SL ONE ×2 (17:15→17:35)
[2025-02-15] MEDS: ASPIRIN 81 MG CHEWABLE TABLETS PO ONE (17:15)
[2025-02-15] MEDS: morphine CARPU-JECT 2 MG/1 ML DISP.SYRIN IVPUSH ONE ×2 (17:34→19:59)
[2025-02-15 17:39] LABS: ABSOLUTE IMMATURE GRANULOCYTES 0.02 x10^3/uL (0.0-0.031); BASOPHILS # 0.01 x10^3/uL (0.01-0.08); EOSINOPHIL % 1.9 % (0.8-7.0); EOSINOPHILS # 0.14 x10^3/uL (0.04-0.54); MCHC 32.3 g/dl (32.3-36.5); MEAN CELL VOLUME 93.0 fl (79.0-92.2); MEAN PLT VOLUME 10.5 fl (9.4-12.4); MONOCYTE # 0.69 x10^3/uL (0.30-0.82); MONOCYTE % 9.3 % (5.3-12.2); RDW 12.5 % (12.2-16.1)
[2025-02-15 18:04] LABS: GLUCOSE,RANDOM 136.0 mg/dL (74-106)
[2025-02-15 18:06] LABS: CO2 15.0 mmol/L (21-32)
[2025-02-15 18:10] LABS: CREATININE 5.77 mg/dL (0.55-1.3)
[2025-02-15 19:51] LABS: ARTERIAL BLD GAS O2 SATURATION 90.7 % (95-98); ARTERIAL BLOOD GAS BASE EXCESS -9.7 mmol/L (-2-2); ARTERIAL BLOOD GAS PCO2 35.00 mmHg (35-45); ARTERIAL BLOOD GAS PO2 65.4 mmHg (80-100); BG HCT 28.0 % (35.4-49); O2 CONTENT 1.20 % vol
[2025-02-15] MEDS: FUROSEMIDE 40 MG/4 ML INJECTABLE VIAL IVPUSH ONE (19:58)
[2025-02-15] MEDS ORDERED: ALBUTEROL SO4 2.5/IPRATROPIUM 0.5 INH SOL 3 ML VIAL.NEB. NEB PRN (20:03)
[2025-02-15] MEDS ORDERED: CALCIUM CARBONATE 650 MG TABLET PO ONE (20:41)
[2025-02-15] MEDS ORDERED: MIDODRINE HCL 5 MG TABLET PO SCH (21:00)
[2025-02-15] MEDS ORDERED: MIDODRINE HCL 5 MG TABLET PO PRN ×2 (21:57)
[2025-02-16] MEDS: FUROSEMIDE 40 MG/4 ML INJECTABLE VIAL IVPUSH SCH (09:26)
[2025-02-16] MEDS: FUROSEMIDE 100 MG/10 ML INJECTABLE VIAL IVPUSH ONE (15:29)
[2025-02-16] MEDS ORDERED: MIDODRINE HCL 5 MG TABLET PO PRN (19:04)
[2025-02-16] MEDS ORDERED: amLODIPine BESYLATE 2.5 MG TABLET (FP) PO ONE (20:03)
[2025-02-16] MEDS: amLODIPine BESYLATE 5 MG TABLET (FP) PO ONE (20:16)
[2025-02-16 22:57] VITALS: BMI 37.4
[2025-02-17 08:12] LABS: ABSOLUTE IMMATURE GRANULOCYTES 0.03 x10^3/uL (0.0-0.031); BASOPHILS # 0.01 x10^3/uL (0.01-0.08); EOSINOPHIL % 1.9 % (0.8-7.0); EOSINOPHILS # 0.12 x10^3/uL (0.04-0.54); MCHC 30.7 g/dl (32.3-36.5); MEAN CELL VOLUME 95.3 fl (79.0-92.2); MEAN PLT VOLUME 10.7 fl (9.4-12.4); MONOCYTE # 0.68 x10^3/uL (0.30-0.82); MONOCYTE % 10.9 % (5.3-12.2); RDW 12.8 % (12.2-16.1)
[2025-02-17 08:25] LABS: GLUCOSE,RANDOM 81 mg/dL (74-106); TOT PROT 6.0 g/dl (6.4-8.2)
[2025-02-17 08:26] LABS: CO2 16 mmol/L (21-32)
[2025-02-17 08:28] LABS: ALK PHOS 77 U/L (40-150)
[2025-02-17 08:30] LABS: SGOT/AST 17 U/L (5-34); SGPT/ALT 14 U/L (0-55)
[2025-02-17 08:31] LABS: CREATININE 6.77 mg/dL (0.55-1.3)
[2025-02-17] MEDS ORDERED: SODIUM CHLORIDE 250 ML IV PRN (09:52)
[2025-02-17] MEDS: FUROSEMIDE 40 MG/4 ML INJECTABLE VIAL IVPUSH ONE (10:23)
[2025-02-17 12:55] LABS: HEPATITIS B SURF AG NON-MATERN NON-REACTIVE (NONREACTIVE)
[2025-02-17] MEDS: morphine CARPU-JECT 2 MG/1 ML DISP.SYRIN IVPUSH PRN (17:33)
[2025-02-18] MEDS ORDERED: SODIUM CHLORIDE 250 ML IV PRN ×2 (09:05→17:13)
[2025-02-18 09:16] LABS: MCHC 31.3 g/dl (32.3-36.5); MEAN CELL VOLUME 95.1 fl (79.0-92.2); MEAN PLT VOLUME 10.5 fl (9.4-12.4); RDW 12.6 % (12.2-16.1)
[2025-02-18 09:59] LABS: GLUCOSE,RANDOM 117.0 mg/dL (74-106)
[2025-02-18 10:00] LABS: CO2 22.0 mmol/L (21-32)
[2025-02-18 10:04] LABS: CREATININE 5.59 mg/dL (0.55-1.3)
[2025-02-18] MEDS ORDERED: MIDAZOLAM HCL 2 MG/2 ML SINGLE DOSE VIAL ONE ×2 (14:30→16:15)
[2025-02-18] MEDS ORDERED: ONDANSETRON 4 MG/2 ML VIAL IVPUSH PRN ×2 (14:51→17:13)
[2025-02-18] MEDS ORDERED: SODIUM CHLORIDE 1,000 ML IV SCH ×2 (15:00→17:13)
[2025-02-18] MEDS ORDERED: LIDOCAINE HCL 1%, 10 MG/ML (20ML VIAL) ONE (15:01)
[2025-02-18] MEDS ORDERED: PAPAVERINE HCL 30 MG/1 ML 10 ML VIAL NR ONE (15:02)
[2025-02-18] MEDS ORDERED: HEPARIN NA (PORCINE) 5,000 UNITS/ML 1ML VIAL ONE (15:02)
[2025-02-18] MEDS: LIDOCAINE HCL 1%, 10 MG/ML (20ML VIAL) INF ONE ×2 (15:40)
[2025-02-18] MEDS ORDERED: DEXAMETHASONE SOD PHOSPHATE 4 MG/1 ML VIAL ONE (15:42)
[2025-02-18] MEDS ORDERED: ONDANSETRON 4 MG/2 ML VIAL ONE (15:42)
[2025-02-18] MEDS: HEPARIN NA (PORCINE) 1,000 UNITS/ML 10ML M-D VIAL SQ ONE (15:45)
[2025-02-18] MEDS ORDERED: KETAMINE HCL 200 MG/20 ML VIAL ONE (15:53)
[2025-02-18] MEDS: HEPARIN NA (PORCINE) 5,000 UNITS/ML 1ML VIAL IV ONE (16:00)
[2025-02-18] MEDS ORDERED: SUGAMMADEX SODIUM 200 MG/2 ML VIAL ONE (16:01)
[2025-02-18] MEDS ORDERED: ACETAMINOPHEN INJECTION 100 ML ONE (16:18)
[2025-02-18] MEDS ORDERED: PROPOFOL 20 ML ONE (16:22)
[2025-02-18] MEDS: POVIDONE-IODINE OINTMENT 10% - 28.4 GM TUBE TP ONE (16:30)
[2025-02-18] MEDS ORDERED: POVIDONE-IODINE OINTMENT 10% - 28.4 GM TUBE ONE (16:31)
[2025-02-18] MEDS ORDERED: ALBUTEROL SO4 HFA INHALER IH PRN (17:13)
[2025-02-18] MEDS ORDERED: NITROGLYCERIN SUBLINGUAL 1/150 0.4 MG TAB SL PRN (17:13)
[2025-02-18] MEDS ORDERED: morphine CARPU-JECT 2 MG/1 ML DISP.SYRIN IVPUSH PRN (17:13)
[2025-02-18] MEDS: ALBUTEROL SO4 2.5/IPRATROPIUM 0.5 INH SOL 3 ML VIAL.NEB. NEB SCH (20:02)
[2025-02-18] MEDS: FERROUS SO4 325 MG TABLET (FP) PO SCH (20:07)
[2025-02-18] MEDS: INSULIN ASPART SLIDING SCALE (NOVOLOG) 1 VIAL SQ SCH (21:25)
[2025-02-18] MEDS: INSULIN GLARGINE (LANTUS) 100 UNITS/ML UNITS SQ SCH (21:27)
[2025-02-18] MEDS: ATORVASTATIN CA 80 MG TABLET (FP) PO SCH (21:29)
[2025-02-18] MEDS: HEPARIN NA (PORCINE) 5,000 UNITS/ML 1ML VIAL SQ SCH (21:30)
[2025-02-18] MEDS: BUDESONIDE/FORMETEROL FUMARATE 160/4.5 mcg INHALER IH SCH (21:30)
[2025-02-18] MEDS: POLYETHYLENE GLYCOL (HEALTHYLAX) 3350 17 GM PACKET PO SCH (21:30)
[2025-02-19] MEDS ORDERED: amLODIPine BESYLATE 5 MG TABLET (FP) PO SCH (10:00)
[2025-02-19] MEDS: TAMSULOSIN HCL 0.4 MG CAP PO SCH (10:36)
[2025-02-19] MEDS: amLODIPine BESYLATE 5 MG TABLET (FP) PO SCH (10:36)
[2025-02-19] MEDS: ASPIRIN COATED 81 MG TABLET.EC PO SCH (10:36)
[2025-02-19] MEDS: CLOPIDOGREL BISULFATE 75 MG TABLET (FP) PO SCH (10:36)
[2025-02-19] MEDS: FOLIC ACID 1 MG TABLET (FP) PO SCH (10:36)
[2025-02-19] MEDS ORDERED: SODIUM CHLORIDE 250 ML IV PRN (10:51)
[2025-02-20 07:33] LABS: MCHC 31.2 g/dl (32.3-36.5); MEAN CELL VOLUME 95.4 fl (79.0-92.2); MEAN PLT VOLUME 10.2 fl (9.4-12.4); RDW 12.4 % (12.2-16.1)
[2025-02-20 11:51] LABS: GLUCOSE,RANDOM 86.0 mg/dL (74-106)
[2025-02-20 11:52] LABS: CO2 23.0 mmol/L (21-32)
[2025-02-20 11:56] LABS: CREATININE 4.72 mg/dL (0.55-1.3)
[2025-02-20] MEDS: EPOETIN ALFA-EPBX 10,000 UNIT/ML VIAL SQ ONE (12:19)
[2025-02-20] MEDS: amLODIPine BESYLATE 10 MG TABLET (FP) PO SCH (13:08)
[2025-02-20] MEDS: PANTOPRAZOLE 20 MG TABLET PO SCH (13:09)
[2025-02-22] MEDS: DEXTROSE 50%-WATER 25 GM/50 ML DISP.SYRIN IVPUSH ONE (04:56)
[2025-02-22] MEDS ORDERED: DEXTROSE 50%-WATER 25 GM/50 ML DISP.SYRIN ONE (04:57)
[2025-02-22] MEDS: DEXTROSE 50%-WATER - 25 GM/50 ML VIAL IVPUSH ONE (05:06)
[2025-02-22 07:58] LABS: MCHC 31.3 g/dl (32.3-36.5); MEAN CELL VOLUME 96.6 fl (79.0-92.2); MEAN PLT VOLUME 10.0 fl (9.4-12.4); RDW 12.3 % (12.2-16.1)
[2025-02-22] MEDS ORDERED: SODIUM CHLORIDE 250 ML IV PRN (08:44)
[2025-02-22] MEDS: HEPARIN NA (PORCINE) 5,000 UNITS/ML 1ML VIAL IVPUSH ONE (10:26)
[2025-02-22 10:41] LABS: GLUCOSE,RANDOM 186.0 mg/dL (74-106)
[2025-02-22 10:43] LABS: CO2 29.0 mmol/L (21-32)
[2025-02-22 10:47] LABS: CREATININE 2.56 mg/dL (0.55-1.3)
[2025-02-22] MEDS: EPOETIN ALFA-EPBX 10,000 UNIT/ML VIAL IVPUSH ONE (12:10)
[2025-02-23 07:45] LABS: ABSOLUTE IMMATURE GRANULOCYTES 0.08 x10^3/uL (0.0-0.031); BASOPHILS # 0.03 x10^3/uL (0.01-0.08); EOSINOPHIL % 2.5 % (0.8-7.0); EOSINOPHILS # 0.16 x10^3/uL (0.04-0.54); MCHC 30.8 g/dl (32.3-36.5); MEAN CELL VOLUME 96.7 fl (79.0-92.2); MEAN PLT VOLUME 9.7 fl (9.4-12.4); MONOCYTE # 0.75 x10^3/uL (0.30-0.82); MONOCYTE % 11.7 % (5.3-12.2); RDW 12.4 % (12.2-16.1)
[2025-02-23 08:02] LABS: GLUCOSE,RANDOM 187.0 mg/dL (74-106)
[2025-02-23 08:03] LABS: CO2 27.0 mmol/L (21-32); TOT PROT 5.9 g/dl (6.4-8.2)
[2025-02-23 08:05] LABS: ALK PHOS 74.0 U/L (40-150)
[2025-02-23 08:07] LABS: SGPT/ALT 9.0 U/L (0-55)
[2025-02-23 08:08] LABS: CREATININE 3.28 mg/dL (0.55-1.3); SGOT/AST 20.0 U/L (5-34)
[2025-02-24 01:47] VITALS: RESP 18
[2025-02-24 08:32] LABS: RDW 12.4 % (12.2-16.1)
[2025-02-24] MEDS ORDERED: SODIUM CHLORIDE 250 ML IV PRN (08:33)
[2025-02-24 08:34] LABS: ABSOLUTE IMMATURE GRANULOCYTES 0.09 x10^3/uL (0.0-0.031); BASOPHILS # 0.02 x10^3/uL (0.01-0.08); EOSINOPHIL % 3.2 % (0.8-7.0); EOSINOPHILS # 0.23 x10^3/uL (0.04-0.54); IMMATURE PLATELET FRACTION # 2.70 x10^3/uL; MCHC 30.8 g/dl (32.3-36.5); MEAN CELL VOLUME 97.5 fl (79.0-92.2); MEAN PLT VOLUME 9.9 fl (9.4-12.4); MONOCYTE # 0.71 x10^3/uL (0.30-0.82); MONOCYTE % 9.7 % (5.3-12.2)
[2025-02-24 09:11] LABS: GLUCOSE,RANDOM 137.0 mg/dL (74-106); TOT PROT 6.1 g/dl (6.4-8.2)
[2025-02-24 09:12] LABS: CO2 24.0 mmol/L (21-32)
[2025-02-24 09:14] LABS: ALK PHOS 84.0 U/L (40-150)
[2025-02-24 09:16] LABS: SGOT/AST 23.0 U/L (5-34)
[2025-02-24 09:17] LABS: CREATININE 3.74 mg/dL (0.55-1.3)
[2025-02-24 09:40] LABS: SGPT/ALT 14.0 U/L (0-55)
[2025-02-24] MEDS: HEPARIN NA (PORCINE) 5,000 UNITS/ML 1ML VIAL IVPUSH ONE (10:20)
[2025-02-24] MEDS: EPOETIN ALFA-EPBX 10,000 UNIT/ML VIAL IVPUSH ONE (12:16)
[2025-02-24 15:30] LABS: MCHC 31.3 g/dl (32.3-36.5); MEAN CELL VOLUME 95.2 fl (79.0-92.2); MEAN PLT VOLUME 9.4 fl (9.4-12.4); RDW 12.4 % (12.2-16.1)
[2025-02-24 16:52] VITALS: BP 145/69; PULSE 89; TEMP 98.1
== END 2025-02-24 17:13 | disposition home or self-care (01) | DRG 252 ==
LOC: JER 15:08 → JERBED 18:40 → J4S 21:12 → OBSVTOIN 02-15 13:00
PROVIDERS: ADMIT Family Medicine; ATTEND Family Medicine
PROC: 06HM33Z Insertion of Infusion Device into Right Femoral Vein, Percutaneous Approach (ICD-10-PCS; 2025-02-17)
PROC: B54BZZA Ultrasonography of Right Lower Extremity Veins, Guidance (ICD-10-PCS; 2025-02-17)
PROC: 05HD33Z Insertion of Infusion Device into Right Cephalic Vein, Percutaneous Approach (ICD-10-PCS; 2025-02-18)
PROC: 05HN33Z Insertion of Infusion Device into Left Internal Jugular Vein, Percutaneous Approach (ICD-10-PCS; 2025-02-18)
PROC: 03170ZD Bypass Right Brachial Artery to Upper Arm Vein, Open Approach (ICD-10-PCS; principal; 2025-02-18 15:00)
PROC: 031 Upper Arteries, Bypass (ICD-10-PCS; 2025-02-18 15:00)
PROC: 5A1D70Z Performance of Urinary Filtration, Intermittent, Less than 6 Hours Per Day (ICD-10-PCS; 2025-02-24)
DX: I13.2 Hypertensive heart and chronic kidney disease with heart failure and with stage 5 chronic kidney disease, or end stage renal disease (principal); I50.33 Acute on chronic diastolic (congestive) heart failure; N18.6 End stage renal disease; N17.9 Acute kidney failure, unspecified; I25.10 Atherosclerotic heart disease of native coronary artery without angina pectoris; E11.22 Type 2 diabetes mellitus with diabetic chronic kidney disease; E78.5 Hyperlipidemia, unspecified; D63.1 Anemia in chronic kidney disease; R07.9 Chest pain, unspecified; E87.70 Fluid overload, unspecified; R00.1 Bradycardia, unspecified
CPT/HCPCS: 36415; 36600; 71045-TC-FY; 71275-TC; 74018-TC-FY; 74174-TC; 74176-TC; 76000-TC-FY; 76705-TC; 80048; 80053; 81003; 82272; 82728; 82803; 82962; 83540; 83550; 83605; 83690; 83735; 83880; 84100; 84484; 85025; 85027; 85610; 85730; 86704; 86705; 86803; 86850; 86900; 86901; 87086; 87340; 87389; 87517; 87637-QW; 93005; 93010; 93308; 93986; 94640; 94760; 99285-25; C1750; G0378; J1644; Q5106